=== PATIENT | male | born 1940 | race Caucasian/White ===

== ENCOUNTER → 2017-05-14 | Outpatient (CLI) | payer OTHER ==
[~2017-05-14] MED LIST: ALBUTEROL SULFATE 0.083% 2.5 MG/3 ML INH IH ONE; ALLO300T2 PO; ASPI-1005 PO; CIPR-278 PO; ESOM40CA PO; FINA5TAB41 PO; HYDR25TA PO; METO100T14 PO; METR500T PO; RIVA20TA PO; TAMS-1 PO; VALS80TA2 PO
== END | disposition home or self-care (01) ==
LOC: RESP 12:17
PROVIDERS: ATTEND Orthopaedic Surgery
DX: J62.8 Pneumoconiosis due to other dust containing silica (principal)
CPT/HCPCS: 71046; 94060; 94729

== ENCOUNTER 2020-06-19 12:08 | Inpatient (IN) | payer MEDICARE, OTHER ==
[~2020-06-19] VITALS: Ht 180.3 cm; Wt 93.9 kg
[2020-06-19] VITALS (13 sets, daily range): BP systolic 97–129; BP diastolic 55–75
[~2020-06-19 12:08] MED LIST changes: -ALBUTEROL SULFATE 0.083% 2.5 MG/3 ML INH IH ONE
[2020-06-19] MEDS ORDERED: HYDROCODONE/ACETAMINOPHEN 10/325 MG TAB ONE (12:28)
[2020-06-19] MEDS ORDERED: CLINDAMYCIN IVPB 600MG/50ML 50 ML IV ONE (12:28)
[2020-06-19 12:52] LABS: BASOPHILS % (AUTO) 0.2 % (0.0-5.0); EOSINOPHILS % (AUTO) 1.7 % (0.0-8.0); HEMATOCRIT 43.6 % (42-54); LYMPHOCYTES % (AUTO) 3.7 % (21.0-51.0); MEAN CORPUSCULAR HEMOGLOBIN 33.6 pg (27.0-33.0); MEAN CORPUSCULAR HGB CONC 34.9 g/dL (32.0-36.0); MEAN CORPUSCULAR VOLUME 96.2 fL (79-99); MONOCYTES % (AUTO) 8.6 % (3.0-13.0); PLATELET COUNT (AUTO) 136 K/uL (130-400); RED BLOOD CELL COUNT(AUTO) 4.53 MIL/uL (4.50-6.20); RED CELL DISTRIBUTION WIDTH 14.7 % (11.0-15.5); WHITE BLOOD COUNT (AUTO) 18.6 K/uL (4.8-10.8)
[2020-06-19 13:10] LABS: INR 1.15 (0.85-1.15); PROTHROMBIN TIME 12.4 SEC (9.6-11.6)
[2020-06-19 13:12] LABS: PARTIAL THROMBOPLASTIN TIME 27.8 SEC (26.3-35.5)
[2020-06-19 13:14] LABS: CREATININE 1.9 mg/dL (0.5-1.5); POTASSIUM 3.5 mmol/L (3.5-5.1)
[2020-06-19 13:19] LABS: ALBUMIN 3.5 g/dL (3.5-5.0); BILIRUBIN,TOTAL 2.4 mg/dL (0.2-1.0); CRP QUANTITATIVE 54.5 mg/L (0.00-9.0); TOTAL PROTEIN, SERUM 6.9 g/dL (6.0-8.3)
[2020-06-19] MEDS ORDERED: VANCOMYCIN PROTOCOL PER PHARMACY IV SCH (14:00)
[2020-06-19] MEDS ORDERED: ACETAMINOPHEN WITH CODEINE 1 TAB TAB PO PRN (14:00)
[2020-06-19] MEDS ORDERED: ONDANSETRON 4MG INJ IVP PRN (14:00)
[2020-06-19] MEDS: 0.9%NACL 1000ML 1,000 ML IV SCH (14:00)
[2020-06-19] MEDS ORDERED: ACETAMINOPHEN 325 MG TAB PO PRN (14:00)
[2020-06-19] MEDS ORDERED: ZOSYN 3.375GM+NS 50ML 50 ML IV ONE (14:33)
[2020-06-19] MEDS ORDERED: ONDANSETRON 4MG INJ ONE (14:43)
[2020-06-19] MEDS ORDERED: MORPHINE 2 MG SYG ONE (14:44)
[2020-06-19] MEDS ORDERED: NOREPINEPHRIN 4MG/NS 250ML 250 ML IV SCH (17:30)
[2020-06-19] MEDS ORDERED: NOREPINEPHRIN 4MG/NS 250ML 250 ML IV ONE (17:55)
[2020-06-19] MEDS ORDERED: VANCOMYCIN 1G 1.5 GM in 0.9% NACL 250ML 250 ML IV SCH (21:00)
[2020-06-19] MEDS ORDERED: MULT-1367 PO (21:55)
[2020-06-19] MEDS ORDERED: HYDR25TA PO (21:55)
[2020-06-19] MEDS ORDERED: APIX5TAB PO (21:55)
[2020-06-19] MEDS ORDERED: ROSU10TA22 PO (21:55)
[2020-06-19] MEDS ORDERED: ALLO300T2 PO (21:55)
[2020-06-19] MEDS ORDERED: NITR0.4T50 SL (21:55)
[2020-06-19] MEDS ORDERED: TAMS-1 PO (21:55)
[2020-06-19] MEDS ORDERED: MULT-412 PO (21:55)
[2020-06-19] MEDS ORDERED: CLOP75TA14 PO (21:55)
[2020-06-19] MEDS ORDERED: PANT40TA55 PO (21:55)
[2020-06-19] MEDS ORDERED: METO-408 PO (21:55)
[2020-06-19] MEDS ORDERED: UMEC1DIS IH (21:55)
[2020-06-19] MEDS ORDERED: UBID50TA3 PO (21:55)
[2020-06-19] MEDS: ZOSYN 3.375GM+NS 50ML 50 ML IV SCH ×2 (22:00→23:52)
[2020-06-19] MEDS ORDERED: COMPOUND IV REFRIGERATED 1 EACH IVSOLN MISC PRN (22:00)
[2020-06-20] VITALS (28 sets, daily range): BP systolic 91–163; BP diastolic 55–90
[2020-06-20 03:30] LABS: APPEARANCE,URINE Cloudy (CLEAR); BILIRUBIN,URINE Small (NEGATIVE); COLOR,URINE Dark Yellow (YELLOW); GLUCOSE, URINE (UA) Negative (NEGATIVE); KETONES,URINE Trace mg/dL (NEGATIVE); LEUKOCYTE ESTERASE ,URINE Moderate (NEGATIVE); NITRATE,URINE Negative (NEGATIVE); OCCULT BLOOD,URINE Negative (NEGATIVE); PROTEIN,URINE Trace mg/dL (NEGATIVE)
[2020-06-20 03:42] LABS: AMORPHOUS SEDIMENT,UR Few /LPF (None Seen); BACTERIA,URINE Few /HPF (None Seen); RBC,URINE 0-1 /HPF (0-1)
[2020-06-20 03:52] LABS: BASOPHILS % (AUTO) 0.4 % (0.0-5.0); HEMATOCRIT 42.8 % (42-54); LYMPHOCYTES % (AUTO) 7.8 % (21.0-51.0); MEAN CORPUSCULAR HEMOGLOBIN 33.4 pg (27.0-33.0); MEAN CORPUSCULAR HGB CONC 34.3 g/dL (32.0-36.0); MEAN CORPUSCULAR VOLUME 97.3 fL (79-99); MONOCYTES % (AUTO) 5.5 % (3.0-13.0); NEUTROPHILS % (AUTO) 81.4 % (40.0-77.0); PLATELET COUNT (AUTO) 118 K/uL (130-400); RED CELL DISTRIBUTION WIDTH 15.3 % (11.0-15.5); WHITE BLOOD COUNT (AUTO) 15.6 K/uL (4.8-10.8)
[2020-06-20 04:18] LABS: CREATININE 2.5 mg/dL (0.5-1.5); POTASSIUM 4.3 mmol/L (3.5-5.1)
[2020-06-20] MEDS ORDERED: MAGNESIUM 2GM PREMIX 50ML 50 ML IV SCH (06:45)
[2020-06-20 07:22] LABS: CREATINE KINASE, TOTAL 93 U/L (21-232); MYOGLOBIN 268 ng/mL (10-92); TROPONIN I < 0.04 ng/mL (0.00-0.06)
[2020-06-20] MEDS: ZOSYN 3.375GM+NS 50ML 50 ML IV SCH ×3 (07:28→22:06)
[2020-06-20] MEDS ORDERED: ENOXAPARIN SODIUM 30 MG/0.3 ML SQ SCH (09:00)
[2020-06-20] MEDS ORDERED: VANCOMYCIN 750MG + NS 250 ML IV SCH ×2 (09:00)
[2020-06-20] MEDS ORDERED: NON-FORMULARY MEDICATION 1 EACH (Umeclidinium Brm/Vilanterol Tr (Anoro Ellipta 62.5-25 Mcg IH SCH (09:00)
[2020-06-20] MEDS ORDERED: PANTOPRAZOLE 40 MG TAB DR PO SCH (09:00)
[2020-06-20] MEDS ORDERED: LACTATED RINGERS 1000ML 1,000 ML IV SCH (09:15)
[2020-06-20] MEDS ORDERED: PROPOFOL 10 MG/ML 20ML VIAL IV ONE (10:46)
[2020-06-20] MEDS ORDERED: LIDOCAINE PF 100MG/5ML (2%) SYRINGE 5ML ONE (10:46)
[2020-06-20] MEDS ORDERED: PHARMACY COMMUNICATION MISC SCH ×2 (11:00→18:15)
[2020-06-20] MEDS ORDERED: MEPERIDINE-PF 25 MG/ML SYG ONE (12:19)
[2020-06-20] MEDS ORDERED: ROCURONIUM 10MG/1ML SYR 10 MG/ML ML ONE (12:38)
[2020-06-20] MEDS ORDERED: NEOSTIGMINE 5MG/5ML SYR IV ONE (13:15)
[2020-06-20] MEDS ORDERED: GLYCOPYRROLATE 1 MG/5 ML SYRINGE ONE (13:15)
[2020-06-20] MEDS: MORPHINE 2 MG SYG IVP PRN (13:44)
[2020-06-20] MEDS ORDERED: FENTANYL CITRATE PF 50 MCG/1 ML 2ML VIAL ONE (13:45)
[2020-06-20] MEDS ORDERED: CITRIC ACID/SODIUM CITRATE 30 ML UDCUP ONE (13:49)
[2020-06-20] MEDS ORDERED: HYDROMORPHONE 1 MG INJ ONE (13:52)
[2020-06-20] MEDS: CLINDAMYCIN IVPB 600MG/50ML 50 ML IV SCH ×2 (14:17→20:28)
[2020-06-20] MEDS: DOXYCYCLINE 100MG+NS 250ML 250 ML IV SCH ×2 (14:19→23:02)
[2020-06-20] MEDS ORDERED: PROMETHAZINE HCL 25 MG/ML 1ML AMPULE IM PRN (14:30)
[2020-06-20] MEDS ORDERED: RACEPINEPHRINE HCL 2.25% 0.5 ML NEB SOLN NEB PRN (14:30)
[2020-06-20] MEDS ORDERED: FENTANYL CITRATE PF 50 MCG/1 ML 2ML VIAL IVP PRN (14:30)
[2020-06-20] MEDS ORDERED: IPRATROPIUM/ALBUTEROL SULFATE 3 ML SOLUTION IH PRN (14:30)
[2020-06-20] MEDS ORDERED: NALOXONE HCL 0.4 MG/1 ML ML IVP PRN (14:30)
[2020-06-20] MEDS ORDERED: METOCLOPRAMIDE 10 MG/2 ML VIAL IVP PRN (14:30)
[2020-06-20] MEDS: PANTOPRAZOLE 40 MG TAB DR PO SCH (20:00)
[2020-06-20] MEDS: 0.9%NACL 1000ML 1,000 ML IV SCH (20:00)
[2020-06-20] MEDS: CLOPIDOGREL 75MG TAB PO SCH (20:00)
[2020-06-20] MEDS ORDERED: LINEZOLID 600 MG/ISO-OSM 300 ML IV SCH (20:00)
[2020-06-20] MEDS: ATORVASTATIN 20 MG TABLET PO SCH (20:28)
[2020-06-20] MEDS: TAMSULOSIN HCL 0.4 MG CAP.ER.24H PO SCH (20:28)
[2020-06-20] MEDS ORDERED: NON-FORMULARY MEDICATION 1 EACH (Rosuvastatin Calcium (Crestor) 10 MG) PO SCH (21:00)
[2020-06-21] VITALS (8 sets, daily range): BP systolic 105–135; BP diastolic 66–84
[2020-06-21] MEDS: CLINDAMYCIN IVPB 600MG/50ML 50 ML IV SCH ×3 (04:17→20:45)
[2020-06-21 05:29] LABS: BASOPHILS % (AUTO) 0.2 % (0.0-5.0); EOSINOPHILS % (AUTO) 0.3 % (0.0-8.0); HEMATOCRIT 36.6 % (42-54); LYMPHOCYTES % (AUTO) 9.5 % (21.0-51.0); MEAN CORPUSCULAR HEMOGLOBIN 33.3 pg (27.0-33.0); MEAN CORPUSCULAR HGB CONC 34.4 g/dL (32.0-36.0); MEAN CORPUSCULAR VOLUME 96.8 fL (79-99); MONOCYTES % (AUTO) 4.9 % (3.0-13.0); NEUTROPHILS % (AUTO) 83.1 % (40.0-77.0); PLATELET COUNT (AUTO) 104 K/uL (130-400); RED BLOOD CELL COUNT(AUTO) 3.78 MIL/uL (4.50-6.20); RED CELL DISTRIBUTION WIDTH 15.4 % (11.0-15.5); WHITE BLOOD COUNT (AUTO) 9.5 K/uL (4.8-10.8)
[2020-06-21 05:43] LABS: ALBUMIN 2.4 g/dL (3.5-5.0); BILIRUBIN,DIRECT 0.3 mg/dL (0.0-0.3); BILIRUBIN,TOTAL 1.2 mg/dL (0.2-1.0); CREATININE 1.4 mg/dL (0.5-1.5); MAGNESIUM 2.4 mg/dL (1.80-2.40); TOTAL PROTEIN, SERUM 5.8 g/dL (6.0-8.3)
[2020-06-21] MEDS: ZOSYN 3.375GM+NS 50ML 50 ML IV SCH ×3 (05:52→22:00)
[2020-06-21] MEDS: 0.9%NACL 1000ML 1,000 ML IV SCH (06:00)
[2020-06-21] MEDS: HYDROCODONE/ACETAMINOPHEN 7.5/325 MG TAB PO PRN ×3 (06:24→21:00)
[2020-06-21] MEDS ORDERED: METOPROLOL SUCCINATE 50 MG TAB.SR.24H PO SCH (09:00)
[2020-06-21] MEDS ORDERED: ENOXAPARIN SODIUM 40 MG/0.4 ML SYRINGE SQ SCH (10:45)
[2020-06-21] MEDS: PANTOPRAZOLE 40 MG TAB DR PO SCH (10:50)
[2020-06-21] MEDS: CLOPIDOGREL 75MG TAB PO SCH (10:51)
[2020-06-21] MEDS: Umeclidinium Brm/Vilanterol Tr (Anoro Ellipta 62.5-25 Mcg IH SCH (10:53)
[2020-06-21] MEDS ORDERED: FENTANYL CITRATE PF 50 MCG/1 ML 2ML VIAL IVP PRN (11:00)
[2020-06-21] MEDS: DOCUSATE SODIUM 100 MG CAP PO SCH ×2 (13:50→21:00)
[2020-06-21] MEDS ORDERED: ACETAMINOPHEN 325 MG TAB PO PRN (14:00)
[2020-06-21] MEDS ORDERED: METOPROLOL TARTRATE 25 MG TAB PO SCH (14:20)
[2020-06-21] MEDS ORDERED: CYCLOBENZAPRINE HCL 10 MG TABLET PO SCH (17:15)
[2020-06-21] MEDS: MORPHINE 2 MG SYG IVP PRN (17:16)
[2020-06-21] MEDS ORDERED: IBUPROFEN 800 MG TAB PO SCH (17:30)
[2020-06-21] MEDS: TAMSULOSIN HCL 0.4 MG CAP.ER.24H PO SCH (21:00)
[2020-06-21] MEDS: ATORVASTATIN 20 MG TABLET PO SCH (21:00)
[2020-06-21] MEDS: ZOLPIDEM TARTRATE 5 MG TAB PO SCH (21:00)
[2020-06-22] VITALS (7 sets, daily range): BP systolic 117–149; BP diastolic 69–78
[2020-06-22] MEDS: CLINDAMYCIN IVPB 600MG/50ML 50 ML IV SCH ×3 (03:54→22:01)
[2020-06-22] MEDS: MORPHINE 2 MG SYG IVP PRN ×3 (05:23→15:53)
[2020-06-22] MEDS: ZOSYN 3.375GM+NS 50ML 50 ML IV SCH ×3 (05:42→22:01)
[2020-06-22 05:57] LABS: BASOPHILS % (AUTO) 0.2 % (0.0-5.0); EOSINOPHILS % (AUTO) 0.7 % (0.0-8.0); LYMPHOCYTES % (AUTO) 9.6 % (21.0-51.0); MEAN CORPUSCULAR HEMOGLOBIN 33.7 pg (27.0-33.0); MEAN CORPUSCULAR HGB CONC 35.3 g/dL (32.0-36.0); MEAN CORPUSCULAR VOLUME 95.5 fL (79-99); MONOCYTES % (AUTO) 5.2 % (3.0-13.0); PLATELET COUNT (AUTO) 120 K/uL (130-400); RED BLOOD CELL COUNT(AUTO) 3.77 MIL/uL (4.50-6.20); RED CELL DISTRIBUTION WIDTH 15.1 % (11.0-15.5); WHITE BLOOD COUNT (AUTO) 9.8 K/uL (4.8-10.8)
[2020-06-22 06:04] LABS: CREATININE 1.3 mg/dL (0.5-1.5); MAGNESIUM 2.4 mg/dL (1.80-2.40); POTASSIUM 3.5 mmol/L (3.5-5.1)
[2020-06-22] MEDS ORDERED: KCL 20 MEQ ERTAB PO PRN (07:45)
[2020-06-22] MEDS ORDERED: POTASSIUM CHLORIDE 10% ELIXIR 20 MEQ/15 ML UDCUP PO PRN (07:45)
[2020-06-22] MEDS ORDERED: POTASSIUM CHLORIDE 20MEQ/100ML 100 ML IV PRN (07:45)
[2020-06-22 07:59] LABS: ALBUMIN 2.4 g/dL (3.5-5.0); BILIRUBIN,DIRECT 0.8 mg/dL (0.0-0.3); BILIRUBIN,TOTAL 1.7 mg/dL (0.2-1.0)
[2020-06-22] MEDS: CLOPIDOGREL 75MG TAB PO SCH (08:19)
[2020-06-22] MEDS: HYDROCODONE/ACETAMINOPHEN 7.5/325 MG TAB PO PRN ×3 (08:19→18:13)
[2020-06-22] MEDS: PANTOPRAZOLE 40 MG TAB DR PO SCH (08:19)
[2020-06-22] MEDS: ENOXAPARIN SODIUM 40 MG/0.4 ML SYRINGE SQ SCH (08:19)
[2020-06-22] MEDS: DOCUSATE SODIUM 100 MG CAP PO SCH ×3 (08:19→22:00)
[2020-06-22] MEDS: Umeclidinium Brm/Vilanterol Tr (Anoro Ellipta 62.5-25 Mcg IH SCH (09:00)
[2020-06-22] MEDS: SENNOSIDES 8.6 MG TABLET PO SCH (19:00)
[2020-06-22] MEDS: ZOLPIDEM TARTRATE 5 MG TAB PO SCH (22:01)
[2020-06-22] MEDS: TAMSULOSIN HCL 0.4 MG CAP.ER.24H PO SCH (22:01)
[2020-06-22] MEDS: ATORVASTATIN 20 MG TABLET PO SCH (22:01)
[2020-06-23] VITALS (22 sets, daily range): BP systolic 120–146; BP diastolic 60–81
[2020-06-23 05:21] LABS: BASOPHILS % (AUTO) 0.3 % (0.0-5.0); EOSINOPHILS % (AUTO) 1.6 % (0.0-8.0); LYMPHOCYTES % (AUTO) 10.6 % (21.0-51.0); MEAN CORPUSCULAR HEMOGLOBIN 32.8 pg (27.0-33.0); MEAN CORPUSCULAR HGB CONC 34.7 g/dL (32.0-36.0); MEAN CORPUSCULAR VOLUME 94.5 fL (79-99); MONOCYTES % (AUTO) 7.7 % (3.0-13.0); NEUTROPHILS % (AUTO) 78.7 % (40.0-77.0); PLATELET COUNT (AUTO) 133 K/uL (130-400); RED BLOOD CELL COUNT(AUTO) 3.81 MIL/uL (4.50-6.20); RED CELL DISTRIBUTION WIDTH 14.7 % (11.0-15.5); WHITE BLOOD COUNT (AUTO) 9.5 K/uL (4.8-10.8)
[2020-06-23 05:50] LABS: CREATININE 1.1 mg/dL (0.5-1.5); POTASSIUM 3.3 mmol/L (3.5-5.1)
[2020-06-23] MEDS: CLINDAMYCIN IVPB 600MG/50ML 50 ML IV SCH ×3 (06:04→19:52)
[2020-06-23] MEDS: ZOSYN 3.375GM+NS 50ML 50 ML IV SCH ×4 (06:04→23:33)
[2020-06-23] MEDS: ENOXAPARIN SODIUM 40 MG/0.4 ML SYRINGE SQ SCH (09:00)
[2020-06-23] MEDS: PANTOPRAZOLE 40 MG TAB DR PO SCH (09:00)
[2020-06-23] MEDS: Umeclidinium Brm/Vilanterol Tr (Anoro Ellipta 62.5-25 Mcg IH SCH (09:00)
[2020-06-23] MEDS: CLOPIDOGREL 75MG TAB PO SCH (09:00)
[2020-06-23] MEDS: SENNOSIDES 8.6 MG TABLET PO SCH (09:00)
[2020-06-23] MEDS: DOCUSATE SODIUM 100 MG CAP PO SCH ×3 (09:00→19:56)
[2020-06-23] MEDS: MORPHINE 2 MG SYG IVP PRN (10:03)
[2020-06-23] MEDS ORDERED: LIDOCAINE PF 100MG/5ML (2%) SYRINGE 5ML ONE (13:27)
[2020-06-23] MEDS ORDERED: FENTANYL CITRATE PF 50 MCG/1 ML 2ML VIAL ONE ×2 (13:28→14:18)
[2020-06-23] MEDS ORDERED: PROPOFOL 10 MG/ML 20ML VIAL IV ONE (13:28)
[2020-06-23] MEDS ORDERED: MIDAZOLAM HCL 1 MG/ML 2ML VIAL ONE (13:28)
[2020-06-23] MEDS ORDERED: DEXAMETHASONE SOD PHOSPHATE 10MG/ML 1ML VIAL ONE (13:28)
[2020-06-23] MEDS ORDERED: ONDANSETRON 4MG INJ ONE (13:28)
[2020-06-23] MEDS ORDERED: KETAMINE 50MG/ML SYRINGE 50 MG/ML DISP.SYRIN IV ONE (13:31)
[2020-06-23] MEDS ORDERED: PHENYLEPHRINE HCL 10 MG/ML 1ML VIAL IV ONE (13:57)
[2020-06-23] MEDS ORDERED: BISACODYL 10 MG SUPP.RECT RC ONE (17:45)
[2020-06-23] MEDS: ZOLPIDEM TARTRATE 5 MG TAB PO SCH (19:51)
[2020-06-23] MEDS: ATORVASTATIN 20 MG TABLET PO SCH (19:51)
[2020-06-23] MEDS: TAMSULOSIN HCL 0.4 MG CAP.ER.24H PO SCH (19:52)
[2020-06-24] VITALS (7 sets, daily range): BP systolic 115–154; BP diastolic 71–86
[2020-06-24] MEDS: CLINDAMYCIN IVPB 600MG/50ML 50 ML IV SCH ×3 (04:17→21:06)
[2020-06-24 05:40] LABS: BASOPHILS % (AUTO) 0.4 % (0.0-5.0); HEMATOCRIT 36.8 % (42-54); LYMPHOCYTES % (AUTO) 13.2 % (21.0-51.0); MEAN CORPUSCULAR HEMOGLOBIN 32.6 pg (27.0-33.0); MEAN CORPUSCULAR HGB CONC 33.7 g/dL (32.0-36.0); MEAN CORPUSCULAR VOLUME 96.8 fL (79-99); MONOCYTES % (AUTO) 8.9 % (3.0-13.0); NEUTROPHILS % (AUTO) 74.9 % (40.0-77.0); PLATELET COUNT (AUTO) 150 K/uL (130-400); RED CELL DISTRIBUTION WIDTH 15.1 % (11.0-15.5); WHITE BLOOD COUNT (AUTO) 7.7 K/uL (4.8-10.8)
[2020-06-24] MEDS: ZOSYN 3.375GM+NS 50ML 50 ML IV SCH ×3 (05:54→22:11)
[2020-06-24 06:04] LABS: ALBUMIN 2.2 g/dL (3.5-5.0); BILIRUBIN,TOTAL 1.1 mg/dL (0.2-1.0); CREATININE 0.9 mg/dL (0.5-1.5); POTASSIUM 4.2 mmol/L (3.5-5.1); TOTAL PROTEIN, SERUM 6.1 g/dL (6.0-8.3)
[2020-06-24] MEDS: Umeclidinium Brm/Vilanterol Tr (Anoro Ellipta 62.5-25 Mcg IH SCH (09:00)
[2020-06-24] MEDS: PANTOPRAZOLE 40 MG TAB DR PO SCH (09:06)
[2020-06-24] MEDS: SENNOSIDES 8.6 MG TABLET PO SCH (09:06)
[2020-06-24] MEDS: CLOPIDOGREL 75MG TAB PO SCH (09:06)
[2020-06-24] MEDS: DOCUSATE SODIUM 100 MG CAP PO SCH ×3 (09:06→19:36)
[2020-06-24] MEDS: ENOXAPARIN SODIUM 40 MG/0.4 ML SYRINGE SQ SCH (09:09)
[2020-06-24] MEDS: METOPROLOL SUCCINATE 50 MG TAB.SR.24H PO SCH (12:36)
[2020-06-24] MEDS: HYDROCODONE/ACETAMINOPHEN 7.5/325 MG TAB PO PRN ×2 (12:46→21:05)
[2020-06-24] MEDS: TAMSULOSIN HCL 0.4 MG CAP.ER.24H PO SCH (21:04)
[2020-06-24] MEDS: ATORVASTATIN 20 MG TABLET PO SCH (21:05)
[2020-06-24] MEDS: ZOLPIDEM TARTRATE 5 MG TAB PO SCH (21:05)
[2020-06-25 04:04] VITALS: BP 143/90
[2020-06-25] MEDS: HYDROCODONE/ACETAMINOPHEN 7.5/325 MG TAB PO PRN ×3 (04:04→17:27)
[2020-06-25] MEDS: CLINDAMYCIN IVPB 600MG/50ML 50 ML IV SCH ×3 (04:05→21:28)
[2020-06-25 05:10] LABS: BASOPHILS % (AUTO) 0.6 % (0.0-5.0); EOSINOPHILS % (AUTO) 3.1 % (0.0-8.0); HEMATOCRIT 38.7 % (42-54); LYMPHOCYTES % (AUTO) 20.2 % (21.0-51.0); MEAN CORPUSCULAR HEMOGLOBIN 32.7 pg (27.0-33.0); MEAN CORPUSCULAR HGB CONC 33.9 g/dL (32.0-36.0); MEAN CORPUSCULAR VOLUME 96.5 fL (79-99); MONOCYTES % (AUTO) 8.7 % (3.0-13.0); NEUTROPHILS % (AUTO) 61.8 % (40.0-77.0); PLATELET COUNT (AUTO) 181 K/uL (130-400); RED BLOOD CELL COUNT(AUTO) 4.01 MIL/uL (4.50-6.20); RED CELL DISTRIBUTION WIDTH 15.1 % (11.0-15.5); WHITE BLOOD COUNT (AUTO) 8.4 K/uL (4.8-10.8)
[2020-06-25 05:22] LABS: ALBUMIN 2.2 g/dL (3.5-5.0); CREATININE 1.1 mg/dL (0.5-1.5); POTASSIUM 3.8 mmol/L (3.5-5.1)
[2020-06-25] MEDS: ZOSYN 3.375GM+NS 50ML 50 ML IV SCH ×3 (06:17→22:20)
[2020-06-25 07:48] VITALS: BP 162/96
[2020-06-25] MEDS: DOCUSATE SODIUM 100 MG CAP PO SCH ×3 (09:31→21:28)
[2020-06-25] MEDS: CLOPIDOGREL 75MG TAB PO SCH (09:31)
[2020-06-25] MEDS: SENNOSIDES 8.6 MG TABLET PO SCH (09:32)
[2020-06-25] MEDS: METOPROLOL SUCCINATE 50 MG TAB.SR.24H PO SCH (09:32)
[2020-06-25] MEDS: PANTOPRAZOLE 40 MG TAB DR PO SCH (09:32)
[2020-06-25] MEDS: ENOXAPARIN SODIUM 40 MG/0.4 ML SYRINGE SQ SCH (09:34)
[2020-06-25] MEDS ORDERED: HYDROCODONE/ACETAMINOPHEN 5/325 MG TAB PO SCH (10:30)
[2020-06-25] MEDS: Umeclidinium Brm/Vilanterol Tr (Anoro Ellipta 62.5-25 Mcg IH SCH (10:39)
[2020-06-25 11:47] VITALS: BP 167/92
[2020-06-25] MEDS: HYDROCODONE/ACETAMINOPHEN 5/325 MG TAB PO PRN (14:47)
[2020-06-25] MEDS ORDERED: MORPHINE 2 MG SYG IVP ONE (15:30)
[2020-06-25 15:36] VITALS: BP 156/94
[2020-06-25] MEDS: MORPHINE 2 MG SYG IVP PRN ×2 (18:12→22:23)
[2020-06-25 19:58] VITALS: BP 129/84
[2020-06-25] MEDS: TAMSULOSIN HCL 0.4 MG CAP.ER.24H PO SCH (21:28)
[2020-06-25] MEDS: ZOLPIDEM TARTRATE 5 MG TAB PO SCH (21:28)
[2020-06-25] MEDS: ATORVASTATIN 20 MG TABLET PO SCH (21:28)
[2020-06-25 23:52] VITALS: BP 133/81
[2020-06-26] MEDS: MORPHINE 2 MG SYG IVP PRN ×5 (03:27→23:50)
[2020-06-26 04:13] LABS: BASOPHILS % (AUTO) 0.5 % (0.0-5.0); EOSINOPHILS % (AUTO) 1.9 % (0.0-8.0); HEMATOCRIT 36.7 % (42-54); MEAN CORPUSCULAR HEMOGLOBIN 33.3 pg (27.0-33.0); MEAN CORPUSCULAR HGB CONC 34.9 g/dL (32.0-36.0); MEAN CORPUSCULAR VOLUME 95.6 fL (79-99); MONOCYTES % (AUTO) 7.6 % (3.0-13.0); NEUTROPHILS % (AUTO) 72.5 % (40.0-77.0); PLATELET COUNT (AUTO) 184 K/uL (130-400); RED BLOOD CELL COUNT(AUTO) 3.84 MIL/uL (4.50-6.20); RED CELL DISTRIBUTION WIDTH 15.4 % (11.0-15.5); WHITE BLOOD COUNT (AUTO) 9.9 K/uL (4.8-10.8)
[2020-06-26 04:33] LABS: ALBUMIN 2.2 g/dL (3.5-5.0); BILIRUBIN,TOTAL 1.2 mg/dL (0.2-1.0); TOTAL PROTEIN, SERUM 5.9 g/dL (6.0-8.3)
[2020-06-26] MEDS: CLINDAMYCIN IVPB 600MG/50ML 50 ML IV SCH ×3 (04:38→19:53)
[2020-06-26 04:58] VITALS: BP 132/84
[2020-06-26] MEDS: ZOSYN 3.375GM+NS 50ML 50 ML IV SCH ×3 (06:27→23:49)
[2020-06-26 08:00] VITALS: BP 154/86
[2020-06-26] MEDS: HYDROCODONE/ACETAMINOPHEN 5/325 MG TAB PO PRN ×3 (08:18→19:52)
[2020-06-26] MEDS: Umeclidinium Brm/Vilanterol Tr (Anoro Ellipta 62.5-25 Mcg IH SCH (08:18)
[2020-06-26] MEDS: SENNOSIDES 8.6 MG TABLET PO SCH (08:19)
[2020-06-26] MEDS: METOPROLOL SUCCINATE 50 MG TAB.SR.24H PO SCH (08:19)
[2020-06-26] MEDS: PANTOPRAZOLE 40 MG TAB DR PO SCH (08:19)
[2020-06-26] MEDS: DOCUSATE SODIUM 100 MG CAP PO SCH ×3 (08:19→19:53)
[2020-06-26] MEDS: CLOPIDOGREL 75MG TAB PO SCH (08:19)
[2020-06-26] MEDS: ENOXAPARIN SODIUM 40 MG/0.4 ML SYRINGE SQ SCH ×2 (08:25→11:54)
[2020-06-26] MEDS: HYDROCODONE/ACETAMINOPHEN 7.5/325 MG TAB PO PRN (11:54)
[2020-06-26 12:13] VITALS: BP 140/74
[2020-06-26] MEDS ORDERED: REGADENOSON 0.4 MG/5 ML PF SYG IVP SCH (12:15)
[2020-06-26 16:00] VITALS: BP 137/76
[2020-06-26] MEDS: ATORVASTATIN 20 MG TABLET PO SCH (19:53)
[2020-06-26] MEDS: TAMSULOSIN HCL 0.4 MG CAP.ER.24H PO SCH (19:53)
[2020-06-26] MEDS: ZOLPIDEM TARTRATE 5 MG TAB PO SCH (19:53)
[2020-06-26 20:01] VITALS: BP 156/84
[2020-06-26 23:25] VITALS: BP 150/82
[2020-06-27] VITALS (30 sets, daily range): BP systolic 96–175; BP diastolic 55–94
[2020-06-27] MEDS: MORPHINE 2 MG SYG IVP PRN ×4 (04:17→22:01)
[2020-06-27] MEDS: CLINDAMYCIN IVPB 600MG/50ML 50 ML IV SCH ×3 (04:17→20:33)
[2020-06-27 04:49] LABS: BASOPHILS % (AUTO) 0.5 % (0.0-5.0); EOSINOPHILS % (AUTO) 2.2 % (0.0-8.0); HEMATOCRIT 37.8 % (42-54); LYMPHOCYTES % (AUTO) 14.1 % (21.0-51.0); MEAN CORPUSCULAR HEMOGLOBIN 32.9 pg (27.0-33.0); MEAN CORPUSCULAR HGB CONC 34.9 g/dL (32.0-36.0); MEAN CORPUSCULAR VOLUME 94.3 fL (79-99); MONOCYTES % (AUTO) 6.3 % (3.0-13.0); NEUTROPHILS % (AUTO) 72.8 % (40.0-77.0); PLATELET COUNT (AUTO) 209 K/uL (130-400); RED BLOOD CELL COUNT(AUTO) 4.01 MIL/uL (4.50-6.20); RED CELL DISTRIBUTION WIDTH 15.1 % (11.0-15.5); WHITE BLOOD COUNT (AUTO) 9.4 K/uL (4.8-10.8)
[2020-06-27 05:07] LABS: CREATININE 0.9 mg/dL (0.5-1.5); POTASSIUM 4.2 mmol/L (3.5-5.1)
[2020-06-27] MEDS: ZOSYN 3.375GM+NS 50ML 50 ML IV SCH ×3 (05:11→22:00)
[2020-06-27] MEDS: METOPROLOL SUCCINATE 50 MG TAB.SR.24H PO SCH (08:27)
[2020-06-27] MEDS: SENNOSIDES 8.6 MG TABLET PO SCH (09:00)
[2020-06-27] MEDS: Umeclidinium Brm/Vilanterol Tr (Anoro Ellipta 62.5-25 Mcg IH SCH (09:00)
[2020-06-27] MEDS: PANTOPRAZOLE 40 MG TAB DR PO SCH (09:00)
[2020-06-27] MEDS: DOCUSATE SODIUM 100 MG CAP PO SCH ×3 (09:00→20:32)
[2020-06-27] MEDS: ENOXAPARIN SODIUM 40 MG/0.4 ML SYRINGE SQ SCH (09:00)
[2020-06-27] MEDS: CLOPIDOGREL 75MG TAB PO SCH (09:00)
[2020-06-27] MEDS ORDERED: LACTATED RINGERS 1000ML 1,000 ML IV ONE (11:34)
[2020-06-27] MEDS ORDERED: DEXAMETHASONE SOD PHOSPHATE 10MG/ML 1ML VIAL ONE (12:33)
[2020-06-27] MEDS ORDERED: SUCCINYLCHOLINE 200MG/10ML SYR ONE ×2 (12:33→12:34)
[2020-06-27] MEDS ORDERED: LIDOCAINE PF 100MG/5ML (2%) SYRINGE 5ML ONE (12:33)
[2020-06-27] MEDS ORDERED: PROPOFOL 10 MG/ML 20ML VIAL IV ONE (12:34)
[2020-06-27] MEDS ORDERED: NEOSTIGMINE 5MG/5ML SYR IV ONE (12:34)
[2020-06-27] MEDS ORDERED: ROCURONIUM 10MG/1ML SYR 10 MG/ML ML ONE (12:34)
[2020-06-27] MEDS ORDERED: FENTANYL CITRATE PF 50 MCG/1 ML 2ML VIAL ONE (12:34)
[2020-06-27] MEDS ORDERED: GLYCOPYRROLATE 1 MG/5 ML SYRINGE ONE (12:34)
[2020-06-27] MEDS ORDERED: ONDANSETRON 4MG INJ ONE (12:34)
[2020-06-27] MEDS ORDERED: MORPHINE 2 MG SYG ONE (14:19)
[2020-06-27] MEDS: HYDROCODONE/ACETAMINOPHEN 7.5/325 MG TAB PO PRN ×2 (15:22→20:32)
[2020-06-27] MEDS: TAMSULOSIN HCL 0.4 MG CAP.ER.24H PO SCH (20:32)
[2020-06-27] MEDS: ATORVASTATIN 20 MG TABLET PO SCH (20:32)
[2020-06-27] MEDS: ZOLPIDEM TARTRATE 5 MG TAB PO SCH (20:32)
[2020-06-27] MEDS ORDERED: APIXABAN 5 MG TABLET PO SCH (21:00)
[2020-06-28 03:56] VITALS: BP 127/72
[2020-06-28 04:37] LABS: BASOPHILS % (AUTO) 0.5 % (0.0-5.0); EOSINOPHILS % (AUTO) 2.9 % (0.0-8.0); HEMATOCRIT 36.8 % (42-54); LYMPHOCYTES % (AUTO) 13.5 % (21.0-51.0); MEAN CORPUSCULAR HEMOGLOBIN 32.2 pg (27.0-33.0); MEAN CORPUSCULAR HGB CONC 33.7 g/dL (32.0-36.0); MEAN CORPUSCULAR VOLUME 95.6 fL (79-99); MONOCYTES % (AUTO) 6.9 % (3.0-13.0); PLATELET COUNT (AUTO) 223 K/uL (130-400); RED BLOOD CELL COUNT(AUTO) 3.85 MIL/uL (4.50-6.20); RED CELL DISTRIBUTION WIDTH 15.3 % (11.0-15.5); WHITE BLOOD COUNT (AUTO) 9.7 K/uL (4.8-10.8)
[2020-06-28 04:45] LABS: CREATININE 0.9 mg/dL (0.5-1.5); POTASSIUM 4.3 mmol/L (3.5-5.1)
[2020-06-28] MEDS: CLINDAMYCIN IVPB 600MG/50ML 50 ML IV SCH ×3 (05:41→19:40)
[2020-06-28] MEDS: ZOSYN 3.375GM+NS 50ML 50 ML IV SCH ×3 (06:00→22:00)
[2020-06-28 07:37] VITALS: BP 134/85
[2020-06-28] MEDS: PANTOPRAZOLE 40 MG TAB DR PO SCH (08:47)
[2020-06-28] MEDS: DOCUSATE SODIUM 100 MG CAP PO SCH ×3 (08:47→19:40)
[2020-06-28] MEDS: SENNOSIDES 8.6 MG TABLET PO SCH (08:47)
[2020-06-28] MEDS: ENOXAPARIN SODIUM 80 MG/0.8 ML SQ SCH (08:47)
[2020-06-28] MEDS: METOPROLOL SUCCINATE 50 MG TAB.SR.24H PO SCH (08:48)
[2020-06-28] MEDS: HYDROCHLOROTHIAZIDE 25 MG TABLET PO SCH (08:48)
[2020-06-28] MEDS: Umeclidinium Brm/Vilanterol Tr (Anoro Ellipta 62.5-25 Mcg IH SCH (08:49)
[2020-06-28] MEDS: CLOPIDOGREL 75MG TAB PO SCH (08:54)
[2020-06-28] MEDS ORDERED: ALLOPURINOL 300 MG TABLET PO SCH (09:00)
[2020-06-28] MEDS ORDERED: ENOXAPARIN SODIUM 40 MG/0.4 ML SYRINGE SQ SCH (09:00)
[2020-06-28 11:39] VITALS: BP 122/71
[2020-06-28 15:24] VITALS: BP 135/83
[2020-06-28 19:38] VITALS: BP 128/78
[2020-06-28] MEDS: ZOLPIDEM TARTRATE 5 MG TAB PO SCH (19:40)
[2020-06-28] MEDS: TAMSULOSIN HCL 0.4 MG CAP.ER.24H PO SCH (19:40)
[2020-06-28] MEDS: ATORVASTATIN 20 MG TABLET PO SCH (19:40)
[2020-06-29] VITALS (7 sets, daily range): BP systolic 121–141; BP diastolic 67–83
[2020-06-29] MEDS: CLINDAMYCIN IVPB 600MG/50ML 50 ML IV SCH ×3 (05:12→20:01)
[2020-06-29 05:16] LABS: BASOPHILS % (AUTO) 0.7 % (0.0-5.0); EOSINOPHILS % (AUTO) 1.9 % (0.0-8.0); HEMATOCRIT 38.3 % (42-54); LYMPHOCYTES % (AUTO) 12.1 % (21.0-51.0); MEAN CORPUSCULAR VOLUME 94.3 fL (79-99); MONOCYTES % (AUTO) 7.4 % (3.0-13.0); NEUTROPHILS % (AUTO) 75.4 % (40.0-77.0); PLATELET COUNT (AUTO) 253 K/uL (130-400); RED BLOOD CELL COUNT(AUTO) 4.06 MIL/uL (4.50-6.20); RED CELL DISTRIBUTION WIDTH 14.8 % (11.0-15.5); WHITE BLOOD COUNT (AUTO) 10.6 K/uL (4.8-10.8)
[2020-06-29 05:28] LABS: ALBUMIN 2.5 g/dL (3.5-5.0); BILIRUBIN,TOTAL 1.2 mg/dL (0.2-1.0); CREATININE 1.2 mg/dL (0.5-1.5); POTASSIUM 4.1 mmol/L (3.5-5.1); TOTAL PROTEIN, SERUM 6.3 g/dL (6.0-8.3)
[2020-06-29] MEDS: ZOSYN 3.375GM+NS 50ML 50 ML IV SCH ×4 (06:00→22:00)
[2020-06-29] MEDS: ENOXAPARIN SODIUM 80 MG/0.8 ML SQ SCH (08:42)
[2020-06-29] MEDS: CLOPIDOGREL 75MG TAB PO SCH (08:43)
[2020-06-29] MEDS: DOCUSATE SODIUM 100 MG CAP PO SCH ×3 (08:43→20:02)
[2020-06-29] MEDS: HYDROCHLOROTHIAZIDE 25 MG TABLET PO SCH (08:43)
[2020-06-29] MEDS: PANTOPRAZOLE 40 MG TAB DR PO SCH (08:43)
[2020-06-29] MEDS: METOPROLOL SUCCINATE 50 MG TAB.SR.24H PO SCH (08:43)
[2020-06-29] MEDS: Umeclidinium Brm/Vilanterol Tr (Anoro Ellipta 62.5-25 Mcg IH SCH (08:44)
[2020-06-29] MEDS: SENNOSIDES 8.6 MG TABLET PO SCH (08:44)
[2020-06-29] MEDS: HYDROCODONE/ACETAMINOPHEN 7.5/325 MG TAB PO PRN (08:56)
[2020-06-29] MEDS ORDERED: LACTULOSE 20 GM/30 ML UDCUP PO SCH (13:30)
[2020-06-29] MEDS: ATORVASTATIN 20 MG TABLET PO SCH (20:01)
[2020-06-29] MEDS: TAMSULOSIN HCL 0.4 MG CAP.ER.24H PO SCH (20:02)
[2020-06-29] MEDS: ZOLPIDEM TARTRATE 5 MG TAB PO SCH (20:02)
[2020-06-30 03:00] VITALS: BP 128/79
[2020-06-30] MEDS: CLINDAMYCIN IVPB 600MG/50ML 50 ML IV SCH ×3 (04:45→20:05)
[2020-06-30] MEDS: ZOSYN 3.375GM+NS 50ML 50 ML IV SCH ×6 (06:00→22:18)
[2020-06-30 07:49] VITALS: BP 124/79
[2020-06-30] MEDS: Umeclidinium Brm/Vilanterol Tr (Anoro Ellipta 62.5-25 Mcg IH SCH (09:00)
[2020-06-30] MEDS: METOPROLOL SUCCINATE 50 MG TAB.SR.24H PO SCH (09:08)
[2020-06-30] MEDS: SENNOSIDES 8.6 MG TABLET PO SCH (09:08)
[2020-06-30] MEDS: CLOPIDOGREL 75MG TAB PO SCH (09:08)
[2020-06-30] MEDS: PANTOPRAZOLE 40 MG TAB DR PO SCH (09:08)
[2020-06-30] MEDS: HYDROCHLOROTHIAZIDE 25 MG TABLET PO SCH (09:08)
[2020-06-30] MEDS: DOCUSATE SODIUM 100 MG CAP PO SCH ×3 (09:08→20:03)
[2020-06-30] MEDS: ENOXAPARIN SODIUM 80 MG/0.8 ML SQ SCH (09:09)
[2020-06-30 11:45] VITALS: BP 123/74
[2020-06-30 16:00] VITALS: BP 104/66
[2020-06-30 20:00] VITALS: BP 123/73
[2020-06-30] MEDS: HYDROCODONE/ACETAMINOPHEN 7.5/325 MG TAB PO PRN (20:03)
[2020-06-30] MEDS: ZOLPIDEM TARTRATE 5 MG TAB PO SCH (20:03)
[2020-06-30] MEDS: TAMSULOSIN HCL 0.4 MG CAP.ER.24H PO SCH (20:03)
[2020-06-30] MEDS: ATORVASTATIN 20 MG TABLET PO SCH (20:03)
[2020-07-01] VITALS (7 sets, daily range): BP systolic 110–149; BP diastolic 64–87
[2020-07-01] MEDS: HYDROCODONE/ACETAMINOPHEN 7.5/325 MG TAB PO PRN ×6 (02:40→19:14)
[2020-07-01 03:50] LABS: BASOPHILS % (AUTO) 1.1 % (0.0-5.0); EOSINOPHILS % (AUTO) 2.6 % (0.0-8.0); HEMATOCRIT 39.6 % (42-54); LYMPHOCYTES % (AUTO) 21.4 % (21.0-51.0); MEAN CORPUSCULAR HEMOGLOBIN 32.6 pg (27.0-33.0); MEAN CORPUSCULAR HGB CONC 34.3 g/dL (32.0-36.0); MONOCYTES % (AUTO) 11.9 % (3.0-13.0); PLATELET COUNT (AUTO) 261 K/uL (130-400); RED BLOOD CELL COUNT(AUTO) 4.17 MIL/uL (4.50-6.20); WHITE BLOOD COUNT (AUTO) 7.4 K/uL (4.8-10.8)
[2020-07-01 03:59] LABS: CREATININE 1.2 mg/dL (0.5-1.5)
[2020-07-01] MEDS: CLINDAMYCIN IVPB 600MG/50ML 50 ML IV SCH ×3 (06:03→20:16)
[2020-07-01] MEDS: ZOSYN 3.375GM+NS 50ML 50 ML IV SCH ×3 (06:04→22:02)
[2020-07-01] MEDS: PANTOPRAZOLE 40 MG TAB DR PO SCH (08:51)
[2020-07-01] MEDS: HYDROCHLOROTHIAZIDE 25 MG TABLET PO SCH (08:51)
[2020-07-01] MEDS: METOPROLOL SUCCINATE 50 MG TAB.SR.24H PO SCH (08:52)
[2020-07-01] MEDS: SENNOSIDES 8.6 MG TABLET PO SCH (08:52)
[2020-07-01] MEDS: DOCUSATE SODIUM 100 MG CAP PO SCH ×3 (08:52→20:15)
[2020-07-01] MEDS: CLOPIDOGREL 75MG TAB PO SCH (08:52)
[2020-07-01] MEDS: ENOXAPARIN SODIUM 80 MG/0.8 ML SQ SCH (08:53)
[2020-07-01] MEDS: Umeclidinium Brm/Vilanterol Tr (Anoro Ellipta 62.5-25 Mcg IH SCH (08:57)
[2020-07-01] MEDS: ZOLPIDEM TARTRATE 5 MG TAB PO SCH (20:15)
[2020-07-01] MEDS: ATORVASTATIN 20 MG TABLET PO SCH (20:15)
[2020-07-01] MEDS: TAMSULOSIN HCL 0.4 MG CAP.ER.24H PO SCH (20:15)
[2020-07-01] MEDS: NYSTATIN 15 GM POWDER TP SCH (20:16)
[2020-07-01] MEDS ORDERED: MORPHINE 2 MG SYG ONE (22:11)
[2020-07-02] MEDS: HYDROCODONE/ACETAMINOPHEN 7.5/325 MG TAB PO PRN ×2 (02:10→06:16)
[2020-07-02 03:56] VITALS: BP 121/69
[2020-07-02 04:11] LABS: EOSINOPHILS % (AUTO) 3.3 % (0.0-8.0); HEMATOCRIT 41.5 % (42-54); LYMPHOCYTES % (AUTO) 20.2 % (21.0-51.0); MEAN CORPUSCULAR HEMOGLOBIN 32.2 pg (27.0-33.0); MEAN CORPUSCULAR HGB CONC 33.5 g/dL (32.0-36.0); MEAN CORPUSCULAR VOLUME 96.1 fL (79-99); MONOCYTES % (AUTO) 13.2 % (3.0-13.0); NEUTROPHILS % (AUTO) 60.6 % (40.0-77.0); PLATELET COUNT (AUTO) 277 K/uL (130-400); RED BLOOD CELL COUNT(AUTO) 4.32 MIL/uL (4.50-6.20); RED CELL DISTRIBUTION WIDTH 14.8 % (11.0-15.5); WHITE BLOOD COUNT (AUTO) 7.7 K/uL (4.8-10.8)
[2020-07-02 04:25] LABS: ALBUMIN 2.7 g/dL (3.5-5.0); BILIRUBIN,TOTAL 0.8 mg/dL (0.2-1.0); CREATININE 1.1 mg/dL (0.5-1.5); POTASSIUM 3.8 mmol/L (3.5-5.1); TOTAL PROTEIN, SERUM 6.5 g/dL (6.0-8.3)
[2020-07-02] MEDS: CLINDAMYCIN IVPB 600MG/50ML 50 ML IV SCH ×3 (04:43→20:51)
[2020-07-02] MEDS: ZOSYN 3.375GM+NS 50ML 50 ML IV SCH ×4 (06:08→22:00)
[2020-07-02 08:13] VITALS: BP 121/80
[2020-07-02] MEDS: HYDROCHLOROTHIAZIDE 25 MG TABLET PO SCH (08:55)
[2020-07-02] MEDS: PANTOPRAZOLE 40 MG TAB DR PO SCH (08:55)
[2020-07-02] MEDS: CLOPIDOGREL 75MG TAB PO SCH (08:56)
[2020-07-02] MEDS: DOCUSATE SODIUM 100 MG CAP PO SCH ×3 (08:56→20:42)
[2020-07-02] MEDS: METOPROLOL SUCCINATE 50 MG TAB.SR.24H PO SCH (08:56)
[2020-07-02] MEDS: SENNOSIDES 8.6 MG TABLET PO SCH (08:56)
[2020-07-02] MEDS: ENOXAPARIN SODIUM 80 MG/0.8 ML SQ SCH (08:58)
[2020-07-02] MEDS: NYSTATIN 15 GM POWDER TP SCH ×2 (08:58→20:51)
[2020-07-02] MEDS: Umeclidinium Brm/Vilanterol Tr (Anoro Ellipta 62.5-25 Mcg IH SCH (08:59)
[2020-07-02] MEDS: MORPHINE 2 MG SYG IVP PRN (08:59)
[2020-07-02 12:00] VITALS: BP 124/73
[2020-07-02] MEDS ORDERED: BISACODYL 10 MG SUPP.RECT RC PRN (12:00)
[2020-07-02] MEDS ORDERED: LACTULOSE 20 GM/30 ML UDCUP PO PRN (12:00)
[2020-07-02 16:00] VITALS: BP 115/69
[2020-07-02] MEDS: LUBIPROSTONE 24 MCG CAP PO SCH (17:52)
[2020-07-02 19:37] VITALS: BP 122/72
[2020-07-02] MEDS: ATORVASTATIN 20 MG TABLET PO SCH (20:42)
[2020-07-02] MEDS: ZOLPIDEM TARTRATE 5 MG TAB PO SCH (20:42)
[2020-07-02] MEDS: TAMSULOSIN HCL 0.4 MG CAP.ER.24H PO SCH (20:42)
[2020-07-02 23:50] VITALS: BP 119/76
[2020-07-03 03:56] VITALS: BP 138/77
[2020-07-03] MEDS: CLINDAMYCIN IVPB 600MG/50ML 50 ML IV SCH ×2 (05:37→12:42)
[2020-07-03 05:47] LABS: EOSINOPHILS % (AUTO) 1.8 % (0.0-8.0); HEMATOCRIT 41.4 % (42-54); LYMPHOCYTES % (AUTO) 17.4 % (21.0-51.0); MEAN CORPUSCULAR HEMOGLOBIN 32.9 pg (27.0-33.0); MEAN CORPUSCULAR HGB CONC 34.5 g/dL (32.0-36.0); MEAN CORPUSCULAR VOLUME 95.4 fL (79-99); MONOCYTES % (AUTO) 13.9 % (3.0-13.0); NEUTROPHILS % (AUTO) 64.8 % (40.0-77.0); PLATELET COUNT (AUTO) 277 K/uL (130-400); RED BLOOD CELL COUNT(AUTO) 4.34 MIL/uL (4.50-6.20); RED CELL DISTRIBUTION WIDTH 14.9 % (11.0-15.5)
[2020-07-03] MEDS: ZOSYN 3.375GM+NS 50ML 50 ML IV SCH (06:00)
[2020-07-03 06:04] LABS: CREATININE 1.1 mg/dL (0.5-1.5); POTASSIUM 3.6 mmol/L (3.5-5.1)
[2020-07-03 08:00] VITALS: BP 125/74
[2020-07-03] MEDS: LUBIPROSTONE 24 MCG CAP PO SCH ×2 (08:00→15:01)
[2020-07-03] MEDS: SENNOSIDES 8.6 MG TABLET PO SCH (09:00)
[2020-07-03] MEDS: Umeclidinium Brm/Vilanterol Tr (Anoro Ellipta 62.5-25 Mcg IH SCH (09:00)
[2020-07-03] MEDS: DOCUSATE SODIUM 100 MG CAP PO SCH ×3 (09:00→22:45)
[2020-07-03] MEDS: METOPROLOL SUCCINATE 50 MG TAB.SR.24H PO SCH (09:33)
[2020-07-03] MEDS: HYDROCHLOROTHIAZIDE 25 MG TABLET PO SCH (09:34)
[2020-07-03] MEDS: PANTOPRAZOLE 40 MG TAB DR PO SCH (09:34)
[2020-07-03] MEDS: ENOXAPARIN SODIUM 80 MG/0.8 ML SQ SCH (09:34)
[2020-07-03] MEDS: CLOPIDOGREL 75MG TAB PO SCH (09:34)
[2020-07-03] MEDS: NYSTATIN 15 GM POWDER TP SCH ×2 (09:41→22:45)
[2020-07-03 12:00] VITALS: BP 108/61
[2020-07-03 16:00] VITALS: BP 156/63
[2020-07-03 19:49] VITALS: BP 126/57
[2020-07-03] MEDS: ZOLPIDEM TARTRATE 5 MG TAB PO SCH (22:45)
[2020-07-03] MEDS: TAMSULOSIN HCL 0.4 MG CAP.ER.24H PO SCH (22:45)
[2020-07-03] MEDS: ATORVASTATIN 20 MG TABLET PO SCH (22:45)
[2020-07-03 23:36] VITALS: BP 120/70
[2020-07-04] VITALS (22 sets, daily range): BP systolic 111–158; BP diastolic 61–103
[2020-07-04] MEDS: CLINDAMYCIN IVPB 600MG/50ML 50 ML IV SCH (04:45)
[2020-07-04 04:58] LABS: BASOPHILS % (AUTO) 0.9 % (0.0-5.0); MEAN CORPUSCULAR HEMOGLOBIN 32.2 pg (27.0-33.0); MEAN CORPUSCULAR HGB CONC 33.7 g/dL (32.0-36.0); MEAN CORPUSCULAR VOLUME 95.8 fL (79-99); NEUTROPHILS % (AUTO) 59.4 % (40.0-77.0); PLATELET COUNT (AUTO) 277 K/uL (130-400); RED BLOOD CELL COUNT(AUTO) 4.28 MIL/uL (4.50-6.20); RED CELL DISTRIBUTION WIDTH 14.9 % (11.0-15.5); WHITE BLOOD COUNT (AUTO) 7.4 K/uL (4.8-10.8)
[2020-07-04 05:16] LABS: POTASSIUM 3.9 mmol/L (3.5-5.1)
[2020-07-04] MEDS: LUBIPROSTONE 24 MCG CAP PO SCH ×2 (08:00→16:25)
[2020-07-04] MEDS: Umeclidinium Brm/Vilanterol Tr (Anoro Ellipta 62.5-25 Mcg IH SCH (08:16)
[2020-07-04] MEDS: DOCUSATE SODIUM 100 MG CAP PO SCH ×3 (08:16→22:12)
[2020-07-04] MEDS: ENOXAPARIN SODIUM 80 MG/0.8 ML SQ SCH (08:17)
[2020-07-04] MEDS: SENNOSIDES 8.6 MG TABLET PO SCH (08:17)
[2020-07-04] MEDS ORDERED: ACETAMINOPHEN 325 MG TAB PO SCH (08:30)
[2020-07-04] MEDS: PANTOPRAZOLE 40 MG TAB DR PO SCH (08:35)
[2020-07-04] MEDS: METOPROLOL SUCCINATE 50 MG TAB.SR.24H PO SCH (08:35)
[2020-07-04] MEDS: HYDROCHLOROTHIAZIDE 25 MG TABLET PO SCH (08:35)
[2020-07-04] MEDS: NYSTATIN 15 GM POWDER TP SCH ×2 (08:48→22:20)
[2020-07-04] MEDS: CLOPIDOGREL 75MG TAB PO SCH (09:00)
[2020-07-04] MEDS ORDERED: PROPOFOL 10 MG/ML 20ML VIAL IV ONE (19:05)
[2020-07-04] MEDS ORDERED: LIDOCAINE PF 100MG/5ML (2%) SYRINGE 5ML ONE (19:05)
[2020-07-04] MEDS ORDERED: SUCCINYLCHOLINE CHLORIDE 20 MG/ML 10 ML VIAL ONE (19:05)
[2020-07-04] MEDS ORDERED: FENTANYL CITRATE PF 50 MCG/1 ML 2ML VIAL ONE ×2 (19:08→20:34)
[2020-07-04] MEDS ORDERED: CEFAZOLIN SODIUM 1 GM VIAL ONE (19:35)
[2020-07-04] MEDS ORDERED: MEPERIDINE-PF 25 MG/ML SYG ONE ×2 (20:26→20:53)
[2020-07-04] MEDS ORDERED: DEXAMETHASONE SOD PHOSPHATE 4 MG/ML 1ML VIAL ONE (20:39)
[2020-07-04] MEDS ORDERED: ROPIVACAINE 0.5% 5MG/ML 30ML IJ ONE (20:39)
[2020-07-04] MEDS: ZOLPIDEM TARTRATE 5 MG TAB PO SCH (22:11)
[2020-07-04] MEDS: TAMSULOSIN HCL 0.4 MG CAP.ER.24H PO SCH (22:12)
[2020-07-04] MEDS: ATORVASTATIN 20 MG TABLET PO SCH (22:12)
[2020-07-04] MEDS: MORPHINE 2 MG SYG IVP PRN (22:12)
[2020-07-05] MEDS ORDERED: HYDROCODONE/ACETAMINOPHEN 10/325 MG TAB PO PRN (00:15)
[2020-07-05] MEDS ORDERED: KETOROLAC 15MG/ML VIAL (15MG/ML) IV PRN (00:15)
[2020-07-05 00:45] VITALS: BP 160/78
[2020-07-05 04:02] VITALS: BP 104/65
[2020-07-05 04:23] LABS: BASOPHILS % (AUTO) 0.4 % (0.0-5.0); EOSINOPHILS % (AUTO) 0.1 % (0.0-8.0); HEMATOCRIT 40.3 % (42-54); LYMPHOCYTES % (AUTO) 10.6 % (21.0-51.0); MEAN CORPUSCULAR HEMOGLOBIN 32.9 pg (27.0-33.0); MEAN CORPUSCULAR HGB CONC 34.2 g/dL (32.0-36.0); MEAN CORPUSCULAR VOLUME 96.2 fL (79-99); MONOCYTES % (AUTO) 8.6 % (3.0-13.0); NEUTROPHILS % (AUTO) 79.7 % (40.0-77.0); PLATELET COUNT (AUTO) 269 K/uL (130-400); RED BLOOD CELL COUNT(AUTO) 4.19 MIL/uL (4.50-6.20); WHITE BLOOD COUNT (AUTO) 8.9 K/uL (4.8-10.8)
[2020-07-05 04:48] LABS: POTASSIUM 4.5 mmol/L (3.5-5.1)
[2020-07-05] MEDS: MORPHINE 2 MG SYG IVP PRN (06:55)
[2020-07-05 07:00] VITALS: BP 120/77
[2020-07-05] MEDS: LUBIPROSTONE 24 MCG CAP PO SCH ×2 (07:57→15:54)
[2020-07-05] MEDS: HYDROCHLOROTHIAZIDE 25 MG TABLET PO SCH (08:00)
[2020-07-05] MEDS: DOCUSATE SODIUM 100 MG CAP PO SCH ×2 (08:00→14:31)
[2020-07-05] MEDS: CLOPIDOGREL 75MG TAB PO SCH (08:01)
[2020-07-05] MEDS: SENNOSIDES 8.6 MG TABLET PO SCH (08:01)
[2020-07-05] MEDS: PANTOPRAZOLE 40 MG TAB DR PO SCH (08:01)
[2020-07-05] MEDS: METOPROLOL SUCCINATE 50 MG TAB.SR.24H PO SCH (08:01)
[2020-07-05] MEDS: NYSTATIN 15 GM POWDER TP SCH (08:02)
[2020-07-05] MEDS: ENOXAPARIN SODIUM 80 MG/0.8 ML SQ SCH (08:02)
[2020-07-05] MEDS: Umeclidinium Brm/Vilanterol Tr (Anoro Ellipta 62.5-25 Mcg IH SCH (08:03)
[2020-07-05 11:00] VITALS: BP 116/74
[2020-07-05 15:00] VITALS: BP 138/80
== END 2020-07-05 18:43 | DRG 853 ==
LOC: EDH 12:08 → EDHIP 13:54 → 2CH 19:36 → 4DH 06-21 14:14
PROVIDERS: ADMIT Internal Medicine; ATTEND Internal Medicine
PROC: 0KNC0ZZ Release Right Hand Muscle, Open Approach (ICD-10-PCS; 2020-06-20)
PROC: 0KN90ZZ Release Right Lower Arm and Wrist Muscle, Open Approach (ICD-10-PCS; principal; 2020-06-20 12:32)
PROC: 0JDG0ZZ Extraction of Right Lower Arm Subcutaneous Tissue and Fascia, Open Approach (ICD-10-PCS; 2020-06-24)
PROC: 0HBDXZZ Excision of Right Lower Arm Skin, External Approach (ICD-10-PCS; 2020-07-05)
DX: A41.9 Sepsis, unspecified organism (principal); M72.6 Necrotizing fasciitis; R65.21 Severe sepsis with septic shock; N17.0 Acute kidney failure with tubular necrosis; L03.113 Cellulitis of right upper limb; I50.32 Chronic diastolic (congestive) heart failure; N39.0 Urinary tract infection, site not specified; I13.0 Hypertensive heart and chronic kidney disease with heart failure and stage 1 through stage 4 chronic kidney disease, or unspecified chronic kidney disease; I47.2 Ventricular tachycardia; M79.89 Other specified soft tissue disorders; D69.6 Thrombocytopenia, unspecified; Z20.822 Contact with and (suspected) exposure to COVID-19; I49.5 Sick sinus syndrome; B96.89 Other specified bacterial agents as the cause of diseases classified elsewhere; E11.22 Type 2 diabetes mellitus with diabetic chronic kidney disease; E66.9 Obesity, unspecified; E78.5 Hyperlipidemia, unspecified; E83.42 Hypomagnesemia; E87.6 Hypokalemia; G47.33 Obstructive sleep apnea (adult) (pediatric); I25.10 Atherosclerotic heart disease of native coronary artery without angina pectoris; I34.0 Nonrheumatic mitral (valve) insufficiency; I48.0 Paroxysmal atrial fibrillation; J44.9 Chronic obstructive pulmonary disease, unspecified; J61 Pneumoconiosis due to asbestos and other mineral fibers; K59.00 Constipation, unspecified; N18.30 Chronic kidney disease, stage 3 unspecified; N20.0 Calculus of kidney; N40.0 Benign prostatic hyperplasia without lower urinary tract symptoms; T63.301A Toxic effect of unspecified spider venom, accidental (unintentional), initial encounter; Z96.611 Presence of right artificial shoulder joint; T78.3XXA Angioneurotic edema, initial encounter; Y92.89 Other specified places as the place of occurrence of the external cause; Z68.28 Body mass index [BMI] 28.0-28.9, adult; Z86.718 Personal history of other venous thrombosis and embolism; Z88.8 Allergy status to other drugs, medicaments and biological substances; I25.2 Old myocardial infarction; Z79.01 Long term (current) use of anticoagulants; Z79.02 Long term (current) use of antithrombotics/antiplatelets; Z79.899 Other long term (current) drug therapy; Z95.0 Presence of cardiac pacemaker; Z95.5 Presence of coronary angioplasty implant and graft; Z87.442 Personal history of urinary calculi; Z87.39 Personal history of other diseases of the musculoskeletal system and connective tissue; Z86.73 Personal history of transient ischemic attack (TIA), and cerebral infarction without residual deficits; Z80.51 Family history of malignant neoplasm of kidney; Z82.49 Family history of ischemic heart disease and other diseases of the circulatory system
CPT/HCPCS: 36415; 71045; 73130; 76770; 78452; 80048; 80053; 80076; 80202; 81001; 82550; 83605; 83735; 83874; 83880; 84145; 84484; 85025; 85610; 85730; 86140; 87040; 87077; 87088; 87186; 87426; 93005; 93017; 93306; 93356; 96374; 97039; 99291; A4355; A4357; A4606; A9500; G0378; J0330; J0690; J1100; J1170; J1650; J2001; J2020; J2175; J2250; J2370; J2405; J2543; J2550; J2704; J2710; J2785; J2795; J3010; J3370; J3475; J3490; J7030; J7050; J7120; U0003

== ENCOUNTER → 2020-07-20 | Outpatient (CLI) | payer MEDICARE, OTHER ==
[~2020-07-20] MED LIST changes: +APIX5TAB PO; -ASPI-1005 PO; -CIPR-278 PO; +CLOP75TA14 PO; -ESOM40CA PO; -FINA5TAB41 PO; +METO-408 PO; -METO100T14 PO; -METR500T PO; +MULT-1367 PO; +MULT-412 PO; +NITR0.4T50 SL; +PANT40TA55 PO; -RIVA20TA PO; +ROSU10TA22 PO; +UBID50TA3 PO; +UMEC1DIS IH; -VALS80TA2 PO
== END | disposition home or self-care (01) ==
LOC: WHH 08:00
PROVIDERS: ATTEND Family Medicine
DX: T81.89XA Other complications of procedures, not elsewhere classified, initial encounter (principal); S51.812A Laceration without foreign body of left forearm, initial encounter; E11.22 Type 2 diabetes mellitus with diabetic chronic kidney disease; I12.9 Hypertensive chronic kidney disease with stage 1 through stage 4 chronic kidney disease, or unspecified chronic kidney disease; N18.30 Chronic kidney disease, stage 3 unspecified; I50.9 Heart failure, unspecified; I25.10 Atherosclerotic heart disease of native coronary artery without angina pectoris; J44.9 Chronic obstructive pulmonary disease, unspecified; E78.5 Hyperlipidemia, unspecified; E87.6 Hypokalemia; E83.42 Hypomagnesemia; M72.6 Necrotizing fasciitis; I34.0 Nonrheumatic mitral (valve) insufficiency; E66.9 Obesity, unspecified; G47.33 Obstructive sleep apnea (adult) (pediatric); I25.2 Old myocardial infarction; M79.89 Other specified soft tissue disorders; I48.0 Paroxysmal atrial fibrillation; D69.6 Thrombocytopenia, unspecified; I48.20 Chronic atrial fibrillation, unspecified; Z88.8 Allergy status to other drugs, medicaments and biological substances; Z48.02 Encounter for removal of sutures; Z79.01 Long term (current) use of anticoagulants; Z79.02 Long term (current) use of antithrombotics/antiplatelets; Z79.899 Other long term (current) drug therapy; Z86.718 Personal history of other venous thrombosis and embolism; Z95.0 Presence of cardiac pacemaker; Z95.5 Presence of coronary angioplasty implant and graft; Z96.611 Presence of right artificial shoulder joint; Z68.28 Body mass index [BMI] 28.0-28.9, adult; Z86.73 Personal history of transient ischemic attack (TIA), and cerebral infarction without residual deficits; X58.XXXA Exposure to other specified factors, initial encounter; Y93.89 Activity, other specified; Y92.89 Other specified places as the place of occurrence of the external cause; Y99.8 Other external cause status; Y83.8 Other surgical procedures as the cause of abnormal reaction of the patient, or of later complication, without mention of misadventure at the time of the procedure; Y92.238 Other place in hospital as the place of occurrence of the external cause
CPT/HCPCS: G0463

== ENCOUNTER → 2020-07-27 | Outpatient (CLI) | payer MEDICARE, OTHER ==
[~2020-07-27] MED LIST changes: +LIDOCAINE HCL 2% JELLY 5 ML TP ONE
== END | disposition home or self-care (01) ==
LOC: WHH 08:00
PROVIDERS: ATTEND Family Medicine
DX: T81.89XD Other complications of procedures, not elsewhere classified, subsequent encounter (principal); S51.812D Laceration without foreign body of left forearm, subsequent encounter; E11.22 Type 2 diabetes mellitus with diabetic chronic kidney disease; I12.9 Hypertensive chronic kidney disease with stage 1 through stage 4 chronic kidney disease, or unspecified chronic kidney disease; N18.30 Chronic kidney disease, stage 3 unspecified; I50.9 Heart failure, unspecified; I25.10 Atherosclerotic heart disease of native coronary artery without angina pectoris; J44.9 Chronic obstructive pulmonary disease, unspecified; E78.5 Hyperlipidemia, unspecified; E87.6 Hypokalemia; E83.42 Hypomagnesemia; M72.6 Necrotizing fasciitis; I34.0 Nonrheumatic mitral (valve) insufficiency; E66.9 Obesity, unspecified; G47.33 Obstructive sleep apnea (adult) (pediatric); I25.2 Old myocardial infarction; M79.89 Other specified soft tissue disorders; I48.0 Paroxysmal atrial fibrillation; D69.6 Thrombocytopenia, unspecified; I48.20 Chronic atrial fibrillation, unspecified; Z88.8 Allergy status to other drugs, medicaments and biological substances; Z48.02 Encounter for removal of sutures; Z79.01 Long term (current) use of anticoagulants; Z79.02 Long term (current) use of antithrombotics/antiplatelets; Z79.899 Other long term (current) drug therapy; Z86.718 Personal history of other venous thrombosis and embolism; Z95.0 Presence of cardiac pacemaker; Z95.5 Presence of coronary angioplasty implant and graft; Z96.611 Presence of right artificial shoulder joint; Z68.28 Body mass index [BMI] 28.0-28.9, adult; Z86.73 Personal history of transient ischemic attack (TIA), and cerebral infarction without residual deficits; X58.XXXD Exposure to other specified factors, subsequent encounter; Y83.8 Other surgical procedures as the cause of abnormal reaction of the patient, or of later complication, without mention of misadventure at the time of the procedure
CPT/HCPCS: G0463

== ENCOUNTER 2024-03-10 09:15 | Emergency (ER) | payer MEDICARE ==
[~2024-03-10] VITALS: Ht 180.3 cm; Wt 97.5 kg
[~2024-03-10 09:15] MED LIST changes: +CLOP-31 PO; -CLOP75TA14 PO; -LIDOCAINE HCL 2% JELLY 5 ML TP ONE
--- NOTE | 2024-03-10 09:30 | EKG ---
[facility] Test Date: 2024-03-10 Test Time: 09:29:12 Pat Name: HARITHA DE LA FUENTE Department: [facility] Room: Gender: M Test Developer: [id number] : 1940 Requested By: HO GAITAN Order Number: [id number] Reading MD: Walt Baron Measurements Intervals [place] Rate: 80 P: 0 TN: 58 QRS: 251 QRSD: 141 T: 93 QT: 418 QTc: 482 Interpretive Statements Ventricular-paced rhythm Biventricular paced rhythm Compared to ECG 06/20/2020 06:26:15 Ventricular premature complex(es) no longer present Electronically Signed On 03-11-2024 14:10:17 MANUFACTURING TECH by Walt Baron Please click the below link to view image of tracing.
--- NOTE | 2024-03-10 09:37 | ERN ---
General Chief Complaint: Nausea,Vomiting,Diarrhea Stated Complaint: N/V, ABD PAIN, COUGH, CONGESTION Time Seen by MD: 09:18 Source: patient, family History of Present Illness Initial Comments IN HIS AN 84-YEAR-OLD MALE COMING IN TO BE EVALUATED FOR NAUSEA AND VOMITING. PER PATIENT YESTERDAY WHILE TRAVELING HE ATE FAST FOOD WHICH HE BELIEVES CAUSED HIS SYMPTOMS. NO FEVER NO CHILLS. Allergies: Coded Allergies: isosorbide (Verified Allergy, Severe, 06/20/20) Angioedema tramadol (Verified Allergy, Unknown, 06/19/20) Home Meds Reported Medications Tamsulosin HCl (Flomax) 0.4 Mg Cap.er.24h, 0.4 MG PO HS, CAPSULE. 06/19/20 Hydrochlorothiazide (Hydrochlorothiazide) 25 Mg Tablet, 25 MG PO DAILY, TAB 06/19/20 Allopurinol (Allopurinol) 300 Mg Tablet, 300 MG PO DAILY, TAB 06/19/20 Multivitamin (Multivitamin) 1 Each Tablet, 1 EACH PO DAILY, TAB 06/19/20 Umeclidinium Brm/Vilanterol Tr (Anoro Ellipta 62.5-25 Mcg INH) 1 Each Disk.w.dev, 1 EACH IH DAILY, DISK 06/19/20 Metoprolol Succinate (Metoprolol Succinate) 25 Mg Tab.er.24h, 25 MG PO DAILY, TAB 06/19/20 Rosuvastatin Calcium (Crestor) 10 Mg Tablet, 10 MG PO HS, TAB 06/19/20 Pantoprazole Sodium (Protonix) 40 Mg Ectab, 40 MG PO DAILY, TAB.EC 06/19/20 Apixaban (Eliquis) 5 Mg Tablet, 5 MG PO BID, TAB 06/19/20 Nitroglycerin (Nitroglycerin) 0.4 Mg Tab.subl, 0.4 MG SL AD, TAB.SL 06/19/20 Ubidecarenone (Coq10) 50 Mg Tab.chew, 200 MG PO HS, TAB.CHEW 06/19/20 Clopidogrel Bisulfate (Plavix) 75 Mg Tablet, 75 MG PO DAILY, TAB 06/19/20 Multivitamin with Minerals (Daily Vitamin Formula-Minerals) 1 Each Tablet, 1 EACH PO DAILY, TAB 06/19/20 Tamsulosin HCl (Flomax) 0.4 Mg/Cap Cap.er.24h, 0.4 MG PO HS, CAPSULE. 04/26/15 Hydrochlorothiazide (Hydrochlorothiazide) 25 Mg Tablet, 25 MG PO AM, TAB 04/26/15 Allopurinol (Allopurinol) 300 Mg Tablet, 300 MG PO AM, TAB 04/26/15 Past Medical History Past Medical History: Heart Disease, Hypertension Past Surgical History: Cholecystectomy, Pacer/AICD ROS Dictation CONSTITUTIONAL: NO CHILLS, NO FEVER, NO WEAKNESS, NO DIAPHORESIS, NO MALAISE. HEAD/FACE: NO SIGNS OF TRAUMA. EENT: NO EYE PAIN, NO BLURRED VISION, NO TEARING, NO DOUBLE VISION, NO EAR PAIN, NO EAR DISCHARGE, NO NOSE PAIN, NO NASAL CONGESTION, NO THROAT PAIN, NO THROAT SWELLING, NO MOUTH PAIN. RESPIRATORY: NO COUGH, NO ORTHOPNEA, NO SOB, NO STRIDOR, NO WHEEZING. CARDIOVASCULAR: NO CHEST PAIN, NO EDEMA, NO PALPITATIONS, NO SYNCOPE. GASTROINTESTINAL/ABDOMINAL: NO ABDOMINAL PAIN, NO CONSTIPATION, NO DIARRHEA, NO NAUSEA, NO VOMITING. GENITOURINARY: NO ABNORMAL DISCHARGE, NO DYSURIA, NO FREQUENT URINATION, NO HEMATURIA. NO COMPLAINTS OF PAIN IN THE GENITALS. MUSCULOSKELETAL: NO BACK PAIN, NO GOUT, NO JOINT PAIN, NO JOINT SWELLING, NO MUSCLE PAIN, NO MUSCLE STIFFNESS, NO NECK PAIN. INTEGUMENTARY: NO CHANGE IN COLOR, NO CHANGE IN HAIR/NAILS, NO DRYNESS, NO LESION, NO LUMPS, NO RASH. NEUROLOGICAL/PSYCH: NO ANXIETY, NOT DEPRESSED, NO EMOTIONAL PROBLEM, NO HEADACHE, NO NUMBNESS, NO PRE-EXISTING DEFICIT, NO HISTORY OF SEIZURES, NO TREMORS, NO WEAKNESS. HEMATOLOGIC/LYMPHATIC: NOT ANEMIC, NO HISTORY OF BLOOD CLOTS, NO APPARENT BLEEDING, NO BRUISING, GLANDS NOT SWOLLEN. ALL SYSTEMS NEGATIVE, EXCEPT NOTED. Physical Exam Physical Exam Dictation VITAL SIGNS: REVIEWED. GENERAL APPEARANCE: ALERT, ORIENTED X3, NO ACUTE DISTRESS, OBESE. HEAD AND FACE: NON-TRAUMATIC. EYES: PERRL, PINK CONJUNCTIVAS, EYELID NO TRAUMA, ANTERIOR CHAMBER CLEAR. EARS: PINNAS INTACT AND NO SIGNS OF TRAUMA OR ERYTHEMA. EAR CANALS CLEAR AND NO DISCHARGE. TMS NO ERYTHEMA. NOSE: NO DISCHARGE, NO BLEEDING. OROPHARYNX: MOUTH NORMAL, TEETH NO CARIES, TONGUE PINK. PHARYNX CLEAR, NO ERYTHEMA. TONSILS NO EXUDATES, NO ABSCESSES NOTED. MUCOUS MEMBRANE MOIST. NECK: SUPPLE, NON-TENDER, NO THYROMEGALY, NO MASSES, NO JVD, NO BRUITS. BREAST: DEFERRED. CHEST: NO TENDERNESS, NO CREPITUS, NO PARADOXICAL MOVEMENT, NO RETRACTIONS. LUNGS: CLEAR, WELL-VENTILATED, SYMMETRIC, NO RALES, NO WHEEZING, NO RHONCHI, NO STRIDOR, GOOD BREATH SOUNDS BILATERALLY. HEART: REGULAR RATE, REGULAR RHYTHM, NO MURMUR, NO GALLOPS. VASCULAR: NO PERIPHERAL EDEMA. ABDOMEN: SOFT, POSITIVE BOWEL SOUNDS, NONDISTENDED, NO GUARDING, NONTENDER, NO REBOUND, NO MASSES NO HEPATOMEGALY, NO SPLENOMEGALY, NO DAVIS'S SIGN, NO HERNIAS. RECTAL: DEFERRED. GENITAL: DEFERRED. NEUROLOGICAL: NORMAL SPEECH, GROSS MOTOR FUNCTION INTACT, GROSS SENSORY FUNCTION INTACT. MUSCULOSKELETAL: NECK NONTENDER, FULL RANGE OF MOTION, BACK NONTENDER, FULL RANGE OF MOTION. EXTREMITIES: NONTENDER, FULL RANGE OF MOTION. SKIN: COLOR PINK, DRY, NO TURGOR, NO RASH, NO LACERATIONS, NO ABRASIONS, NO CONTUSIONS. LYMPHATICS: DEFERRED. Results Laboratory and Microbiology Lab and Micro Result Laboratory Tests Test 03/10/24 09:37 White Blood Count 10.9 K/uL (4.8-10.8) H Red Blood Count 5.19 MIL/uL (4.50-6.20) Hemoglobin 13.9 g/dL (14.0-18.0) L Hematocrit 43.2 % (42-54) Mean Corpuscular Volume 83.2 fL (79-99) Mean Corpuscular Hemoglobin 26.8 pg (27.0-33.0) L Mean Corpuscular Hemoglobin Concent 32.2 g/dL (32.0-36.0) Red Cell Distribution Width 18.6 % (11.0-15.5) H Platelet Count 150 K/uL (130-400) Mean Platelet Volume 9.9 fL (7.5-10.5) Immature Granulocyte % (Auto) 0.6 % (0-1) Neutrophils (%) (Auto) 92.3 % (40.0-77.0) H Lymphocytes (%) (Auto) 2.9 % (21.0-51.0) L Monocytes (%) (Auto) 4.1 % (3.0-13.0) Eosinophils (%) (Auto) 0.0 % (0.0-8.0) Basophils (%) (Auto) 0.1 % (0.0-5.0) Neutrophils # (Auto) 10.0 K/uL (1.8-7.7) H Lymphocytes # (Auto) 0.3 K/uL (1.0-4.8) L Monocytes # (Auto) 0.5 K/uL (0.1-1.0) Eosinophils # (Auto) 0.00 K/uL (0.00-0.70) Basophils # (Auto) 0.01 K/uL (0.00-0.20) Absolute Immature Granulocyte (auto 0.06 K/uL (0-1) Nucleated Red Blood Cells 0.0 % (0.0-0.19) Sodium Level 139 mmol/L (136-145) Potassium Level 4.3 mmol/L (3.5-5.1) Chloride Level 101 mmol/L (101-111) Carbon Dioxide Level 27 mmol/L (21-32) Blood Urea Nitrogen 29 mg/dL (7-18) H Creatinine 1.4 mg/dL (0.5-1.3) H Glomerular Filtration Rate Calc 49 mL/min (>90) Random Glucose 180 mg/dL (70-105) H Total Calcium 9.7 mg/dL (8.5-10.1) Total Bilirubin 2.0 mg/dL (0.2-1.0) H Aspartate Amino Transf (AST/SGOT) 26 U/L (10-37) Alanine Aminotransferase (ALT/SGPT) 30 U/L (12-78) Alkaline Phosphatase 83 U/L (50-136) Total Creatine Kinase 67 U/L (21-232) # Troponin I High Sensitivity 14 ng/L (4-75) Total Protein 7.4 g/dL (6.0-8.3) Albumin 3.7 g/dL (3.5-5.0) Lipase 18 U/L (16-77) Labs Reviewed?: Yes EKG/XRAY/US/CT/MRI EKG Comment 03/10/2024 TIME 9:29 A.M. VENTRICULAR RATE 80 VENTRIC[address] PAC[address] [place] [address] WAVE ELEVATION OR DEPRESSION X-RAY Comment [address] [place] [id number] IMAGING REPORT Signed PATIENT: HARITHA DE LA FUENTE MR#: [id number] : 1940 SEX: M AGE: 84 LOCATION: [facility] ORDER 1 STATUS: REG ER REPORT#: [id number] SERVICE 0 REASON: N/V ORDERING PHYSICIAN: HO GAITAN MD PROCEDURE: CXR1VW - CHEST 1VW CHEST 1VW REASON: N/V COMPARISON: 06/20/2020 FINDINGS: There is mild cardiomegaly. There is no pulmonary vascular congestion. Lungs are clear. 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 IMPRESSION: 1. Mild cardiomegaly, unchanged, no acute finding. DICTATED BY: SHAYNE GARCIA MD DATE: 03/10/24 1138 ELECTRONICALLY SIGNED BY: SHAYNE GARCIA MD DATE: 03/10/24 1141 MDM MDM: DIFFERENTIAL DIAGNOSIS: VIRAL GASTROENTERITIS, GASTRITIS, GASTROENTERITIS, FOOD POISONING PATIENT IS A 84-YEAR-OLD GENTLEMAN COMING IN TO BE EVALUATED FOR VOMITING AND DIARRHEA. PATIENT STATES THAT YESTERDAY HE HAD SOME FAST FOOD WHICH HE BELIEVES MIGHT HAVE UPSET HIS STOMACH TODAY. LABORATORY WORKUP NEGATIVE FOR ACUTE FINDINGS. PATIENT RECEIVED IV FLUIDS WELL SOME PROTON PUMP INHIBITORS HE STATES HIS SYMPTOMS HAVE COMPLETELY RESOLVED. PATIENT WILL BE DISCHARGED WITH THIS SAME MEDICATION I ALSO ADVISED HIM DIET MODIFICATION AND APPROPRIATE FOLLOW UP WITH PCP IN 1-2 DAYS. PATIENT WILL BE DISCHARGED IN STABLE CONDITION THROUGHOUT ER VISIT PATIENT HAS BEEN STABLE. ED Course Orders Procedure Category Date Status Time Cbc With Differential LAB 03/10/24 In Process 09:21 Comprehensive LAB 03/10/24 Complete Metabolic Panel 09:21 Troponin I High LAB 03/10/24 Complete Sensitivity 09:21 Urinalysis Profile LAB 03/10/24 Logged 09:21 12 Lead Ekg Tracing- EKG 03/10/24 Complete Technical 09:21 Lactated Ringers PHA 03/10/24 Complete 1000ml (Lactated 09:30 Ondansetron 4mg Inj PHA 03/10/24 Complete (Zofran 4mg Inj) 09:30 Pantoprazole 40mg Inj PHA 03/10/24 Complete (Protonix 40mg Inj 09:30 Creatine Kinase, Total LAB 03/10/24 Complete 09:21 Chest 1vw RAD 03/10/24 Resulted 09:21 Lipase LAB 03/10/24 Complete 09:21 Current Medications Medications (Trade) Dose Ordered Sig/Yanick Route PRN Reason Start Time Stop Time Status Last Admin Dose Admin Lactated Ringer's 1,000 ml @ 0 mls/hr ONCE ONCE IV 03/10/24 09:30 03/10/24 09:31 DC 03/10/24 09:53 Ondansetron HCl (zoFRAN 4MG INJ) 4 mg ONCE ONCE IVP 03/10/24 09:30 03/10/24 09:31 DC 03/10/24 09:53 Pantoprazole Sodium (PROTonix 40MG INJ) 40 mg ONCE ONCE IVP 03/10/24 09:30 03/10/24 09:31 DC 03/10/24 09:53 Vital Signs Date Time Temp Pulse Resp B/P (MAP) Pulse Ox O2 Delivery O2 Flow Rate FiO2 03/10/24 12:15 98.1 88 20 140/80 99 Room Air* 0 03/10/24 10:00 98.1 95 18 142/83 98 Room Air* 0 21 03/10/24 09:16 99.9 80 16 160/96 99 Room Air 0 DX & DISP Disposition: Discharge Departure Impression: Primary Impression: Viral gastroenteritis Condition: Stable Scripts Pantoprazole Sodium (Protonix) 40 Mg Ectab 1 TAB PO DAILY for 30 Days, #30 TAB 0 Refills Prov: HO GAITAN MD 03/10/24 Additional Instructions: FOLLOW-UP WITH PRIMARY CARE PROVIDER IN 1 TO 2 DAYS. TAKE MEDICATIONS DIRECTED HERE IN THE EMERGENCY ROOM. OKAY TO CONTINUE HOME MEDICATIONS UNLESS OTHERWISE DISCUSSED DURING YOUR VISIT IN THE EMERGENCY ROOM TODAY. RETURN TO YOUR NEAREST EMERGENCY ROOM IF SYMPTOMS WORSEN OR IF THERE IS NO IMPROVEMENT. CALL 911 IF YOU NEED IMMEDIATE ASSISTANCE. TAKE TYLENOL [id number] NEEDED AND IF NO CONTRAINDICATIONS ARE PRESENT. INCREASE ORAL HYDRATION. A WOUND CULTURE OR URINE CULTURE WAS ORDERED HERE IN THE EMERGENCY ROOM DEPARTMENT PLEASE FOLLOW-UP WITH PRIMARY CARE PROVIDER AND ADVISE THEM TO GET REPEAT PORTS FROM OUR FACILITY. IF YOU HAD ANY GREGORY WRAP/SPLINTS THAT WERE APPLIED HERE, PLEASE DO NOT REMOVE THEM UNTIL YOU SEE YOUR PRIMARY CARE OR SPECIALTY. REFERRALS: Referrals: SHAYNE ENGLAND MD (PCP) Time of Disposition: 12:30 HO GAITAN MD Mar 10, 2024 09:37
[2024-03-10 09:46] LABS: BASOPHILS # (AUTO) 0.01 K/uL (0.00-0.20); BASOPHILS % (AUTO) 0.1 % (0.0-5.0); HEMATOCRIT 43.2 % (42-54); IMMATURE GRANULOCYTE ABSOLUTE 0.06 K/uL (0-1); LYMPHOCYTES # (AUTO) 0.3 K/uL (1.0-4.8); LYMPHOCYTES % (AUTO) 2.9 % (21.0-51.0); MEAN CORPUSCULAR HEMOGLOBIN 26.8 pg (27.0-33.0); MEAN CORPUSCULAR HGB CONC 32.2 g/dL (32.0-36.0); MEAN CORPUSCULAR VOLUME 83.2 fL (79-99); MONOCYTES # (AUTO) 0.5 K/uL (0.1-1.0); MONOCYTES % (AUTO) 4.1 % (3.0-13.0); NEUTROPHILS % (AUTO) 92.3 % (40.0-77.0); PLATELET COUNT (AUTO) 150 K/uL (130-400); RED BLOOD CELL COUNT(AUTO) 5.19 MIL/uL (4.50-6.20); RED CELL DISTRIBUTION WIDTH 18.6 % (11.0-15.5); WHITE BLOOD COUNT (AUTO) 10.9 K/uL (4.8-10.8)
[2024-03-10] MEDS: LACTATED RINGERS 1000ML 1,000 ML IV ONE (09:53)
[2024-03-10] MEDS: ondanSETRON 4MG INJ IVP ONE (09:53)
[2024-03-10] MEDS: PANTOPrazole 40 MG/VIAL IVP ONE (09:53)
[2024-03-10 09:55] LABS: CREATININE 1.4 mg/dL (0.5-1.3); POTASSIUM 4.3 mmol/L (3.5-5.1)
[2024-03-10 10:04] LABS: ALBUMIN 3.7 g/dL (3.5-5.0); TOTAL PROTEIN, SERUM 7.4 g/dL (6.0-8.3)
--- NOTE | 2024-03-10 11:41 | HMCIMG ---
CHEST 1VW REASON: N/V COMPARISON: 06/20/2020 FINDINGS: There is mild cardiomegaly. There is no pulmonary vascular congestion. Lungs are clear. 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 IMPRESSION: 1. Mild cardiomegaly, unchanged, no acute finding.
[2024-03-10 12:15] VITALS: BP 140/80; PULSE 88; RESP 20; TEMP 100.4; O2SAT 99
[2024-03-10] MEDS ORDERED: PANT40TA55 PO (12:30)
--- NOTE | 2024-03-10 12:44 | NUR ---
DISCHARGE INSTRUCTIONS AND PRESCRIPTION GIVEN TO PT'S .VERBALIZED UNDERSTANDING.WALKED TO DISCHARGE WITH STABLE GAIT.
[2024-03-10] MEDS: acetaMINOPHEN 500 MG TABLET ONE (13:07)
[2024-03-10 13:08] VITALS: TEMP 100.4
[2024-03-10] MEDS: acetaMINOPHEN 500 MG TABLET PO ONE (13:08)
== END 2024-03-10 13:17 | disposition home or self-care (01) ==
LOC: EDH 09:15
DX: A08.4 Viral intestinal infection, unspecified (principal); I11.9 Hypertensive heart disease without heart failure; Z79.01 Long term (current) use of anticoagulants; Z79.02 Long term (current) use of antithrombotics/antiplatelets; Z79.899 Other long term (current) drug therapy; Z88.5 Allergy status to narcotic agent; Z90.49 Acquired absence of other specified parts of digestive tract; Z95.810 Presence of automatic (implantable) cardiac defibrillator
CPT/HCPCS: 99285; 96374; 71045; 96361; 96375; 82550; 84484; 80053; 83690; 85025; 36415; 93005; J7030; J2405; J2470

== ENCOUNTER 2024-07-21 10:56 | Emergency (ER) | payer OTHER, MEDICARE ==
[~2024-07-21] VITALS: Ht 177.8 cm; Wt 108.9 kg
[~2024-07-21 10:56] MED LIST changes: +TAMS-55 PO
[2024-07-21 11:11] VITALS: BP 152/89; PULSE 77; RESP 15; TEMP 97.7
[2024-07-21 11:24] LABS: BASOPHILS # (AUTO) 0.04 K/uL (0.00-0.20); BASOPHILS % (AUTO) 0.6 % (0.0-5.0); EOSINOPHILS # (AUTO) 0.09 K/uL (0.00-0.70); EOSINOPHILS % (AUTO) 1.4 % (0.0-8.0); IMMATURE GRANULOCYTE ABSOLUTE 0.02 K/uL (0-1); LYMPHOCYTES # (AUTO) 1.6 K/uL (1.0-4.8); LYMPHOCYTES % (AUTO) 24.7 % (21.0-51.0); MEAN CORPUSCULAR HGB CONC 32.3 g/dL (32.0-36.0); MEAN CORPUSCULAR VOLUME 83.7 fL (79-99); MONOCYTES # (AUTO) 0.6 K/uL (0.1-1.0); MONOCYTES % (AUTO) 9.3 % (3.0-13.0); NEUTROPHILS % (AUTO) 63.7 % (40.0-77.0); PLATELET COUNT (AUTO) 191 K/uL (130-400); RED BLOOD CELL COUNT(AUTO) 4.66 MIL/uL (4.50-6.20); RED CELL DISTRIBUTION WIDTH 17.1 % (11.0-15.5); WHITE BLOOD COUNT (AUTO) 6.3 K/uL (4.8-10.8)
[2024-07-21 11:43] LABS: APPEARANCE,URINE CLEAR (CLEAR); BILIRUBIN,URINE NEGATIVE (NEGATIVE); COLOR,URINE COLORLESS (YELLOW); GLUCOSE, URINE (UA) NEGATIVE (NEGATIVE); KETONES,URINE NEGATIVE (NEGATIVE); LEUKOCYTE ESTERASE ,URINE 75 Leu/uL (NEGATIVE); NITRATE,URINE NEGATIVE (NEGATIVE); OCCULT BLOOD,URINE NEGATIVE (NEGATIVE); PROTEIN,URINE NEGATIVE (NEGATIVE); UROBILINOGEN,URINE 0.2 mg/dL (0.2-1.0)
[2024-07-21 11:52] LABS: BACTERIA,URINE None Seen /HPF (None Seen); SQUAMOUS EPITHELIAL CELL,UR Rare /HPF (0-2)
--- NOTE | 2024-07-21 12:00 | ERN ---
General Chief Complaint: Back Pain or Injury Stated Complaint: LOW BACK PAIN Time Seen by MD: 10:58 Time Seen by Midlevel: 10:58 Source: patient History of Present Illness Initial Comments 84 y/o male presents to the ED due to lower back pain onset few days ago. Pt reports he has a nerve stimulator placed [address] Belle and had not been having any pain. A few days ago pt initiated with pain and felt the nerve stimulator lower. Allergies: Coded Allergies: isosorbide (Verified Allergy, Severe, 06/20/20) Angioedema tramadol (Verified Allergy, Unknown, 06/19/20) Home Meds Active Scripts Pantoprazole Sodium (Protonix) 40 Mg Ectab, 1 TAB PO DAILY for 30 Days, #30 TAB 0 Refills Prov:HO GAITAN MD 03/10/24 Reported Medications Tamsulosin HCl (Flomax) 0.4 Mg Cap.er.24h, 0.4 MG PO HS, CAPSULE.DR 06/19/20 Hydrochlorothiazide (Hydrochlorothiazide) 25 Mg Tablet, 25 MG PO DAILY, TAB 06/19/20 Allopurinol (Allopurinol) 300 Mg Tablet, 300 MG PO DAILY, TAB 06/19/20 Multivitamin (Multivitamin) 1 Each Tablet, 1 EACH PO DAILY, TAB 06/19/20 Umeclidinium Brm/Vilanterol Tr (Anoro Ellipta 62.5-25 Mcg INH) 1 Each Disk.w.dev, 1 EACH IH DAILY, DISK 06/19/20 Metoprolol Succinate (Metoprolol Succinate) 25 Mg Tab.er.24h, 25 MG PO DAILY, TAB 06/19/20 Rosuvastatin Calcium (Crestor) 10 Mg Tablet, 10 MG PO HS, TAB 06/19/20 Pantoprazole Sodium (Protonix) 40 Mg Ectab, 40 MG PO DAILY, TAB.EC 06/19/20 Apixaban (Eliquis) 5 Mg Tablet, 5 MG PO BID, TAB 06/19/20 Nitroglycerin (Nitroglycerin) 0.4 Mg Tab.subl, 0.4 MG SL AD, TAB.SL 06/19/20 Ubidecarenone (Coq10) 50 Mg Tab.chew, 200 MG PO HS, TAB.CHEW 06/19/20 Clopidogrel Bisulfate (Plavix) 75 Mg Tablet, 75 MG PO DAILY, TAB 06/19/20 Multivitamin with Minerals (Daily Vitamin Formula-Minerals) 1 Each Tablet, 1 EACH PO DAILY, TAB 06/19/20 Tamsulosin HCl (Flomax) 0.4 Mg/Cap Cap.er.24h, 0.4 MG PO HS, CAPSULE.DR 04/26/15 Hydrochlorothiazide (Hydrochlorothiazide) 25 Mg Tablet, 25 MG PO AM, TAB 04/26/15 Allopurinol (Allopurinol) 300 Mg Tablet, 300 MG PO AM, TAB 04/26/15 Past Medical History Past Medical History: CAD, Heart Disease, Hypertension Past Surgical History: Cholecystectomy, Pacer/AICD Results Laboratory and Microbiology Lab and Micro Result Laboratory Tests Test 07/21/24 11:18 07/21/24 11:28 07/21/24 12:15 White Blood Count 6.3 K/uL (4.8-10.8) Red Blood Count 4.66 MIL/uL (4.50-6.20) Hemoglobin 12.6 g/dL (14.0-18.0) L Hematocrit 39.0 % (42-54) L Mean Corpuscular Volume 83.7 fL (79-99) Mean Corpuscular Hemoglobin 27.0 pg (27.0-33.0) Mean Corpuscular Hemoglobin Concent 32.3 g/dL (32.0-36.0) Red Cell Distribution Width 17.1 % (11.0-15.5) H Platelet Count 191 K/uL (130-400) Mean Platelet Volume 10.3 fL (7.5-10.5) Immature Granulocyte % (Auto) 0.3 % (0-1) Neutrophils (%) (Auto) 63.7 % (40.0-77.0) Lymphocytes (%) (Auto) 24.7 % (21.0-51.0) Monocytes (%) (Auto) 9.3 % (3.0-13.0) Eosinophils (%) (Auto) 1.4 % (0.0-8.0) Basophils (%) (Auto) 0.6 % (0.0-5.0) Neutrophils # (Auto) 4.0 K/uL (1.8-7.7) Lymphocytes # (Auto) 1.6 K/uL (1.0-4.8) Monocytes # (Auto) 0.6 K/uL (0.1-1.0) Eosinophils # (Auto) 0.09 K/uL (0.00-0.70) Basophils # (Auto) 0.04 K/uL (0.00-0.20) Absolute Immature Granulocyte (auto 0.02 K/uL (0-1) Nucleated Red Blood Cells 0.0 % (0.0-0.19) Urine Color COLORLESS (YELLOW) Urine Appearance CLEAR (CLEAR) Urine pH 7.0 (5.0-8.0) Urine Specific [place] 1.006 (1.001-1.031) Urine Protein NEGATIVE mg/dL (NEGATIVE) Urine Glucose (UA) NEGATIVE mg/dL (NEGATIVE) Urine Ketones NEGATIVE mg/dL (NEGATIVE) Urine Occult Blood NEGATIVE (NEGATIVE) Urine Nitrate NEGATIVE (NEGATIVE) Urine Bilirubin NEGATIVE mg/dL (NEGATIVE) Urine Urobilinogen 0.2 mg/dL (0.2-1.0) Urine Leukocyte Esterase 75 Arlene/uL (NEGATIVE) H Urine RBC 2-5 /HPF (0-1) H Urine WBC 11-25 /HPF (0-1) H Urine Squamous Epithelial Cells Rare /HPF (0-2) Urine Bacteria None Seen /HPF (None Seen) Sodium Level 139 mmol/L (136-145) Potassium Level 4.1 mmol/L (3.5-5.1) Chloride Level 104 mmol/L (101-111) Carbon Dioxide Level 30 mmol/L (21-32) Blood Urea Nitrogen 16 mg/dL (7-18) Creatinine 1.2 mg/dL (0.5-1.3) Glomerular Filtration Rate Calc 59 mL/min (>90) Random Glucose 96 mg/dL (70-105) Total Calcium 9.6 mg/dL (8.5-10.1) ED Course Orders Procedure Category Date Status Time Cbc With Differential LAB 07/21/24 Complete 11:02 Urinalysis LAB 07/21/24 Complete W/Microscopic 11:02 Lumbar Spine 4+Vws RAD 07/21/24 Resulted 11:03 Basic Metabolic Panel LAB 07/21/24 Complete 11:32 Ct Lumbar Spine W/O CT 07/21/24 Resulted Contrast 11:34 Orphenadrine Citrate PHA 07/21/24 Complete (Norflex) 12:00 Triamcinolone Acet PHA 07/21/24 Complete 40mg/Ml 1ml (Kenalog 12:00 Lidocaine (Lidocaine PHA 07/21/24 Complete Patch 4%) 12:00 Culture Urine RICHARD 07/21/24 In Process 11:51 Current Medications Medications (Trade) Dose Ordered Sig/Yanick Route PRN Reason Start Time Stop Time Status Last Admin Dose Admin Lidocaine (Lidocaine Patch 4%) 1 each ONCE ONCE TP 07/21/24 12:00 07/21/24 12:01 DC 07/21/24 12:06 Orphenadrine Citrate (Norflex) 60 mg ONCE ONCE IVP 07/21/24 12:00 07/21/24 12:01 DC 07/21/24 12:06 Triamcinolone Acetonide (Kenalog 40) 40 mg ONCE ONCE IM 07/21/24 12:00 07/21/24 12:01 DC 07/21/24 12:06 Vital Signs Date Time Temp Pulse Resp B/P (MAP) Pulse Ox O2 Delivery O2 Flow Rate FiO2 07/21/24 11:11 97.7 77 15 152/89 Room Air* 0 21 07/21/24 11:04 97.9 76 20 152/89 99 Room Air 0 DX & DISP Disposition: Discharge Departure Impression: Primary Impression: Chronic back pain Condition: Stable Additional Instructions: Discharge home. Rest. Follow up with primary care DrCinthia in 24 hours. Return to the ER for any acute changes or worsening symptoms. If any medications were prescribed take as directed. Okay to continue home medications unless otherwise discussed during your visit in the emergency room today. Patient was also advised to follow-up with primary care physician in 1 to 2 days for continued monitoring. Referrals: SHAYNE ENGLAND MD (PCP) I performed the substantive portion of the visit. I have reviewed and personally made and approve the management plan that is documented in the notes by myself or the ASHLEY. I acknowledge full responsibility for the patient's management plan. ANAHY QUISPE Jul 21, 2024 12:00
[2024-07-21] MEDS: LIDOCAINE 4% ADH..PATCH TP ONE (12:06)
[2024-07-21] MEDS: TRIAMCINOLONE ACETONIDE 40 MG/ML 1ML VIAL IM ONE (12:06)
[2024-07-21] MEDS: ORPHENADRINE 60MG/2ML IVP ONE (12:06)
--- NOTE | 2024-07-21 12:15 | HMCIMG ---
Lumbar spine 2 views Comparison Study: none History: Pain Findings: Exam of the lumbosacral spine demonstrates no evidence of fracture or subluxation. There are moderate spondylitic changes. The facet joints show moderate degenerative changes. The alignment of the spine is normal. The disc spaces are intact. Bone mineralization is normal. 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
[2024-07-21 12:35] LABS: CREATININE 1.2 mg/dL (0.5-1.3); POTASSIUM 4.1 mmol/L (3.5-5.1)
--- NOTE | 2024-07-21 13:06 | HMCIMG ---
Exam Type: CT lumbar spine without contrast Findings: There is normal alignment of the vertebral bodies. There are no fractures. There is facet hypertrophy. There are spondylitic changes. There are no large bulges or herniations. The prevertebral soft tissues are normal. Incidentally, there is enlargement of the prostate with calcifications and there is evidence of right nephrolithiasis. IMPRESSION: Degenerative changes as noted.
== END 2024-07-21 15:32 | disposition home or self-care (01) ==
LOC: EDH 10:56
DX: G89.29 Other chronic pain (principal); M54.50 Low back pain, unspecified; I11.9 Hypertensive heart disease without heart failure; I25.10 Atherosclerotic heart disease of native coronary artery without angina pectoris; Z79.01 Long term (current) use of anticoagulants; Z79.02 Long term (current) use of antithrombotics/antiplatelets; Z79.899 Other long term (current) drug therapy; Z88.5 Allergy status to narcotic agent; Z90.49 Acquired absence of other specified parts of digestive tract; Z95.810 Presence of automatic (implantable) cardiac defibrillator
CPT/HCPCS: 36415; 72110; 72131; 80048; 81001; 85025; 87086; 87186; 96372; 96374; 99285; J3301; J2360

== ENCOUNTER → 2025-03-28 | Outpatient (CLI) | payer MEDICARE ==
[2025-03-28 10:00] LABS: IMMATURE GRANULOCYTE ABSOLUTE 0.01 K/uL (0-1); NUCLEATED RED BLOOD CELLS 0.0 % (0.0-0.19); PLATELET COUNT (AUTO) 147 K/uL (130-400); RED BLOOD CELL COUNT(AUTO) 4.55 MIL/uL (4.50-6.20); RED CELL DISTRIBUTION WIDTH 22.6 % (11.0-15.5); WHITE BLOOD COUNT (AUTO) 5.2 K/uL (4.8-10.8)
[2025-03-28 10:12] LABS: INR 1.14 (0.85-1.15)
[2025-03-28 10:15] LABS: ASPARTATE AMINOTRANSFERASE 22.0 U/L (10-37); CREATININE 1.1 mg/dL (0.5-1.3); GLOMERULAR FILTR. RATE CALC 65.0 mL/min (>90); GLUCOSE,RANDOM 90.0 mg/dL (70-105); SODIUM SERUM 144.0 mmol/L (136-145); TOTAL PROTEIN, SERUM 6.9 g/dL (6.0-8.3); UREA NITROGEN, BLOOD 16.0 mg/dL (7-18)
== END | disposition home or self-care (01) ==
LOC: LAB 09:36
PROVIDERS: ATTEND Internal Medicine
DX: R19.00 Intra-abdominal and pelvic swelling, mass and lump, unspecified site (principal); D50.9 Iron deficiency anemia, unspecified; R68.81 Early satiety
CPT/HCPCS: 36415; 80053; 85025; 85610